=== PATIENT | female | born 1940 ===

== ENCOUNTER 2021-02-09 17:33 | Emergency (ER) | payer MEDICARE, SELFPAY ==
[2021-02-09 17:40] VITALS: BP 140/46; PULSE 76; RESP 28; TEMP 36.4; O2SAT 98
--- NOTE | 2021-02-09 18:10 | ED.GENADULT ---
HPI - General Adult General Chief complaint: Epistaxis Stated complaint: nose bleed wont stop Time Seen by Provider: 02/09/21 18:11 Source: patient and family History of Present Illness HPI narrative: Patient comes in for evaluation of nosebleed on and off today. Patient states she is on Eliquis and has had small nosebleeds frequently on and off and has been evaluated by her PCP and started on his Astelin nasal spray which she has not used at this time patient states she had nosebleeds on and off since 1230 today. Patient denies any elevated blood pressure no shortness of breath no pain. Patient presents with a tissue in her left nare and no bleeding present at this time. Related Data Home Medications Medication Instructions Recorded Confirmed apixaban [Eliquis] mg 02/09/21 azelastine INTRANASAL 02/09/21 carvedilol 02/09/21 ferrous sulfate [FeroSul] mg 02/09/21 hydrocodone-acetaminophen tablet 02/09/21 levothyroxine 02/09/21 metformin mg PO 02/09/21 pantoprazole PO 02/09/21 potassium chloride meq PO 02/09/21 simvastatin mg 02/09/21 spironolactone 02/09/21 venlafaxine mg 02/09/21 zolpidem 02/09/21 Allergies Allergy/AdvReac Type Severity Reaction Status Date / Time Sulfa (Sulfonamide Allergy Unknown Rash Verified 09/28/18 18:33 Antibiotics) PROPOXYPHENE HCL Allergy Unknown Uncoded 09/28/18 18:33 Review of Systems Review of Systems: CONSTITUTIONAL: Denies fever, chills, or sweats. EYES: Denies visual changes, redness, or discharge. ENT: Denies rhinorrhea, congestion, sore throat, or otalgia. CARDIOVASCULAR: Denies chest pain, palpitations, or edema. RESPIRATORY: Denies cough or dyspnea. GASTROINTESTINAL: Denies abdominal pain, nausea, vomiting, or diarrhea. GENITOURINARY: Denies dysuria or hematuria. SKIN: Denies rash or itching. MUSCULOSKELETAL: Denies back pain, joint pain, or myalgia. NEUROLOGIC: Denies headache, numbness, or weakness. PSYCHIATRIC: Denies anxiety or depression. [facility] Comments At time of signature, agree with nursing past medical, surgical, social and family history. There is no relevant family history pertinent to the presenting complaint Exam Narrative: GENERAL: Well-appearing, well-nourished, and in no acute distress. HEAD: Normocephalic, atraumatic. EYES: PERRLA and EOMI. ENT: Nares clear, no rhinorrhea or epistaxis. Mucous membranes moist. NECK: Supple. CHEST: Clear to auscultation. No respiratory distress. HEART: Regular rate and rhythm. No murmur heard. Normal peripheral pulses. ABDOMEN: Soft, nontender, nondistended, normal active bowel sounds. EXTREMITIES: Normal range of motion. No edema. SKIN: Warm, dry, no rash. NEURO: No focal deficits. Alert and oriented x3. Adam Coma Scale Eye Opening: Spontaneous 4 [place] Coma Scale Motor: Obeys Commands 6 Adam Coma Scale Verbal: Oriented 5 Hilde[place]an Coma Scale Total 15 HENMT: General nose exam: Normal nares present and Epistaxis present (No epistasis at this time. Tissue removed from left nare and no bleeding) on the left (Left nare patent no visible bleeding) Course Vital Signs Vital signs: Vital Signs Temperature 36.4 C 02/09/21 17:40 Pulse Rate 76 02/09/21 17:40 Respiratory Rate 28 H 02/09/21 17:40 Blood Pressure 140/46 L 02/09/21 17:40 Pulse Oximetry 98 02/09/21 17:40 Temperature 36.4 C 02/09/21 17:40 Pulse Rate 76 02/09/21 17:40 Respiratory Rate 28 H 02/09/21 17:40 Blood Pressure 140/46 L 02/09/21 17:40 Pulse Oximetry 98 02/09/21 17:40 Addressed elevated BP today. Today's blood pressure higher than recommended range. 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 Currently patient denies headache, dizziness, vision changes, CP or shortness of breath. Medical Decision Making Vital Signs Vital Signs: Vital Signs Temperature 36.4 C 02/09/21 17:40 Pulse Rate 76 02/09/21 17:40 Respiratory Rate 28
== END 2021-02-09 18:30 | disposition home or self-care (01) ==
PROVIDERS: Emergency Provider Nurse Practitioner Family
DX: R04.0 Epistaxis (principal); I48.91 Unspecified atrial fibrillation; I11.0 Hypertensive heart disease with heart failure; I50.9 Heart failure, unspecified; Z95.0 Presence of cardiac pacemaker; Z96.653 Presence of artificial knee joint, bilateral; H26.9 Unspecified cataract
CPT/HCPCS: 99211; G0463

== ENCOUNTER 2022-06-20 10:13 | Emergency (ER) | payer MEDICARE, SELFPAY ==
--- NOTE | 2022-06-20 10:18 | ED.URI ---
HPI - URI/Sore Throat General Chief Complaint: Epistaxis Stated Complaint: Bloody Nose Time Seen by Provider: 06/20/22 10:18 Source: patient, family and RN notes reviewed History of Present Illness HPI Narrative: patient is an 82-year-old female who presents to the Urgent Care with complaints of a nosebleed since 8:20 a.m.. Patient states that she does have nose bleeds occasionally with the last 1 being 3 weeks ago. Patient states she has had a sore in her nose and continues to blow her nose which causes the nose bleeds. Patient is on Eliquis. Denies any trauma or injury to the nose. No other acute complaints. No acute distress noted. Patient aware of the plan of care. Some parts of this dictation were generated by voice recognition software and may contain typographical and/or grammatical inaccuracies. Related Data Home Medications Medication Instructions Recorded Confirmed apixaban 5 mg tablet (Eliquis) 5 mg PO DAILY 02/09/21 02/09/21 azelastine 137 mcg (0.1 %) nasal See Rx Instructions .Route .COMPLEX 02/09/21 02/09/21 spray aerosol carvedilol 3.125 mg tablet 3.125 mg PO BID 02/09/21 02/09/21 ferrous sulfate 325 mg (65 mg 325 mg PO DAILY 02/09/21 02/09/21 iron) tablet (FeroSul) hydrocodone 10 mg-acetaminophen 1 tablet PO QID PRN Pain 02/09/21 02/09/21 325 mg tablet levothyroxine 100 mcg tablet 100 mcg PO DAILY 02/09/21 02/09/21 metformin 500 mg tablet,extended 500 mg PO BID 02/09/21 02/09/21 release 24 hr pantoprazole 40 mg tablet,delayed 40 mg PO DAILY 02/09/21 02/09/21 release potassium chloride 20 mEq 20 meq PO DAILY 02/09/21 02/09/21 tablet,extended release(part/cryst) simvastatin 10 mg tablet 10 mg PO DAILY 02/09/21 02/09/21 spironolactone 25 mg tablet 25 mg PO DAILY 02/09/21 02/09/21 venlafaxine 75 mg tablet 75 mg PO DAILY 02/09/21 02/09/21 zolpidem 10 mg tablet 10 mg PO HS PRN Sleep 02/09/21 02/09/21 Allergies Allergy/AdvReac Type Severity Reaction Status Date / Time Sulfa (Sulfonamide Allergy Unknown Rash Verified 09/28/18 18:33 Antibiotics) PROPOXYPHENE HCL Allergy Unknown Uncoded 09/28/18 18:33 Review of Systems Review of Systems: CONSTITUTIONAL: Denies fever, chills, or sweats. EYES: Denies visual changes, redness, or discharge. ENT: Denies rhinorrhea, congestion, sore throat, or otalgia. Reports of nose bleed CARDIOVASCULAR: Denies chest pain, palpitations, or edema. RESPIRATORY: Denies cough or dyspnea. GASTROINTESTINAL: Denies abdominal pain, nausea, vomiting, or diarrhea. GENITOURINARY: Denies dysuria or hematuria. SKIN: Denies rash or itching. MUSCULOSKELETAL: Denies back pain, joint pain, or myalgia. NEUROLOGIC: Denies headache, numbness, or weakness. All other systems reviewed are negative, except as documented in HPI. [facility] Comments At the time of my signature, I reviewed and agree with the nursing past medical, surgical, social, and family history. There is no relevant family history pertinent to the patient complaint. Exam Narrative: GENERAL: This is a well-nourished, well-developed patient, in no apparent distress. HEAD: normocephalic, atraumatic. EYES: PERRL. Sclera clear/white. Vision is grossly intact. EARS: External ears normal NOSE: External nose normal. epistasis to the left Nare with superficial laceration to the septum THROAT: Mucous membranes moist NECK: Neck supple SKIN: warm, intact with no suspicious lesions or rash, good texture and turgor. NEURO: awake, alert, and oriented to person, place and time. There were no obvious focal neurologic abnormalities. EXTREMITIES: No clubbing, cyanosis, or edema. Course Course Level of Care: Express Care Visit Vital Signs Vital signs: Vital Signs Temperature 97.7 F 06/20/22 10:21 Pulse Rate 79 06/20/22 10:21 Respiratory Rate 20 06/20/22 10:21 Blood Pressure 118/70 06/20/22 10:21 Pulse Oximetry 97 06/20/22 10:21 Oxygen Delivery Room Air 06/20/22 10:21 Temperature 97.7 F
[2022-06-20 10:21] VITALS: BP 118/70; PULSE 79; RESP 20; TEMP 36.5; O2SAT 97
== END 2022-06-20 10:54 | disposition home or self-care (01) ==
PROVIDERS: Emergency Provider Nurse Practitioner Family; PCP Hospitalist
DX: R04.0 Epistaxis (principal)
CPT/HCPCS: 30901; 99213; G0463

== ENCOUNTER 2025-01-05 16:16 | Emergency (ER) | payer MEDICARE, SELFPAY ==
--- OUTSIDE RECORDS SUMMARY | 2025-01-05 16:18 | XMS_ITS | Clinical Summary ---
Author Organization [facility] Administrative Offices Address [address] [place] [address] Care Team Providers Care Internal Review And Audit Compliance Name Role Phone Adam Elena MD Primary Care Provider [phone] Allergies Active Allergy Reactions Criticality Noted Date Comments Propoxyphene Unknown 05/25/2009 Sulfa (Sulfonamide Antibiotics) Rash,Itching Low Medications POTASSIUM PO Take by mouth. 20mg Active hydrALAZINE (APRESOLINE) 10 mg Oral Tab Take 10 mg by mouth 4 times daily. Active venlafaxine SR 24 hour (EFFEXOR XR) 150 mg Oral Cp24 Take 150 mg by mouth daily. Active furosemide (LASIX) 40 mg Oral Tab Take 40 mg by mouth daily. Active quinapril (ACCUPRIL) 5 mg Oral Tab Take 5 mg by mouth daily. Active Hydrocodone-Acet aminophen 5-500 mg Oral Cap Take by mouth. Active metformin (GLUCOPHAGE XR) 500 mg Oral Tb24 Take 500 mg by mouth daily. Active ZOLPIDEM TARTRATE 5 MG PO TABS 2 times daily. Active CYANOCOBALAMIN, VITAMIN B-12, (VITAMIN B-12 ORAL) Take by mouth. Active LEVOTHYROXINE 100 mcg Oral tablet 07/05/2013 Active CALCIUM PHOSPHATE TRIB/VIT D3 (CITRACAL + D ORAL) Take by mouth. Active FERROUS SULFATE ORAL Take by mouth. Active apixaban (ELIQUIS) 5 mg tablet Take by mouth 2 times daily. Active Active Problems Patient Care Coordination No te Formatting of this note migh t be different from the original. 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 Adjuvant tamoxifen, and no adjuvant radiation. 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 Gender Identity Not on file Sexual Orientation Not on file Occupation Industry Job Start Date Job End Date Not on file Not on file Not on file Not on file Last Filed Vital Signs Vital Sign Reading Time Taken Comments Blood Pressure 135/69 09/16/2014 12:02 PM CDT Pulse 96 09/16/2014 12:02 PM CDT Temperature - - Respiratory Rate - - Oxygen Saturation - - Inhaled Oxygen Concentration - - Weight 106.1 kg (234 lb) 09/16/2014 12:02 PM CDT Height 152.4 cm (5') 09/16/2014 12:02 PM CDT Body Mass Index 45.7 09/16/2014 12:02 PM CDT Plan of Treatment Health Maintenance Due Date Last Done Comments DTAP/TDAP/TD VACCINES (1 - Tdap) 1961 PNEUMOCOCCAL VACCINE 50+ YEARS (1 of 1 - PCV) 01/16/19 92 ZOSTER VACCINE (1 of 2) 01/17/1992 OSTEOPOROSIS SCREENING 2007 RSV VACCINE (60+ or ) (1 - 1-dose 75+ series) 2017 INFLUENZA VACCINE (#1) 2025 Insurance MEDICARE PART A AND B [facility] Care Teams Internal Review And Audit Compliance Relationship Specialty Start Date End Date Adam Elena MD [address] [place] [address] [phone] PCP - General 05/26/09
--- OUTSIDE RECORDS SUMMARY | 2025-01-05 16:18 | XMS_ITS | Clinical Summary ---
Author Organization [facility] Address [address] [place] [address] Phone Care Team Providers Care Dowel Pointer Name Role Phone Ant Horn MD Unavailable [phone] Fernando Peterson MD Primary Care Provider [phone] Allergies Active Allergy Reactions Criticality Noted Date Comments Sulfa Antibiotics Rash High 03/25/2016 Medications carvedilol (COREG) 6.25 MG Tablet TAKE 1 TABLET BY MOUTH TWICE A DAY 6 6 Active levothyroxine (SYNTHROID) 100 MCG Tablet TAKE ONE TABLET BY MOUTH ONCE A DAY 3 6 Active metFORMIN (GLUCOPHAGE-XR) 500 MG TABLET SR 24 HR TAKE 2 TABLETS BY MOUTH IN THE MORNING, AND 1 TABLET BY MOUTH IN THE EVENING 3 6 Active quinapril (ACCUPRIL) 5 MG Tablet Take 5 mg by mouth daily. 3 6 Active venlafaxine (EFFEXOR-XR) 75 MG CAPSULE SR 24 HR TAKE ONE CAPSULE BY MOUTH EVERY DAY FOR MOOD. 3 6 Active zolpidem (AMBIEN) 10 MG Tablet TAKE 1 TABLET BY MOUTH AT BEDTIME NEEDED FOR INSOMNIA. 5 6 Active KLOR-CON M20 20 MEQ Tablet Controlled Release TAKE 1 TABLET BY MOUTH ONCE DAILY WITH FOOD 3 6 Active HYDROcodone-acet aminophen (NORCO) 10-325 MG Tablet TAKE 1 TABLET BY MOUTH 4 TIMES A DAY NEEDED FOR PAIN 0 6 Active ferrous sulfate 325 (65 FE) MG Tablet TAKE ONE TABLET BY MOUTH EVERY DAY FOR IRON 4 6 Active furosemide (LASIX) 40 MG Tablet Take 40 mg by mouth daily. 3 6 Active hydrALAZINE 10 MG Tablet TAKE 1 TABLET BY MOUTH TWICE A DAY WITH FOOD 3 6 Active apixaban (ELIQUIS) 5 MG Tablet Take 5 mg by mouth 2 times daily. Active spironolactone (ALDACTONE) 25 MG Tablet Take 25 mg by mouth daily. Active ondansetron (ZOFRAN-ODT) 4 MG TABLET DISPERSIBLE Take 1 Tab by mouth every 8 hours as needed for Nausea. 10 Tab 8 Active Additional Information Patient not taking.Reported on 10/28/2017 pantoprazole (PROTONIX) 40 MG Tablet Delayed Response Take 40 mg by mouth daily. Active metroNIDAZOLE (FLAGYL) 500 MG Tablet Take 500mg at 2pm, 3pm, and 10pm the day before surgery. 3 Tab 8 Active neomycin 500 MG Tablet Take 500mg at 2pm, 3pm, and 10pm the day before surgery. 3 Tab 8 Active polyethylene glycol (MIRALAX) Powder 255 Gram of miralax 255 g 8 Active Active Problems Problem Noted Date Diagnosed Date Gallstones, common bile duct 10/21/2017 Small bowel obstruction 10/18/2017 SIRS (systemic inflammatory response syndrome) 0 10/18/[address] of the abdomen 10/18/2017 Chronic systolic CHF (congestive heart failure) 10/18/2017 Atrial fibrillation 10/18/2017 CKD stage 3 due to type 2 diabetes mellitus 10/2017 POLINA (obstructive sleep apnea) 04/01/2016 Restless legs syndrome (RLS) 04/01/2016 Morbid obesity 04/01/2016 Essential (primary) hypertension 04/01/2016 Type 2 diabetes mellitus wit h stage 3 chronic kidney disease 04/01/2016 Immunizations Immunization Administration Dates Next Due Covid-19, Mrna, Lnp-s, PF, 1 00 mcg/0.5 mL Dose (Moderna) 08/19/2020,07/22/2020 Family History Medical History Relation Name Comments No Known Problems Maternal Grandfather No Known Problems Maternal Grandmother Heart Attack Mother No Known Problems Paternal Grandfather No Known Problems Paternal Grandmother Breast Cancer Sister Cancer Sister Relation Name Status Comments Father Maternal Grandfather Maternal Grandmother Mother (Age 42) Paternal Grandfather Paternal Grandmother Sister Social History Tobacco Use Types Packs/Day Years Used Date Smoking Tobacco: Never Smokeless Tobacco: Never Tobacco Cessation:Counseling Given: Yes Alcohol Use Standard Drinks/Week Comments Yes 0 (1 standard drink = 0.6 oz pur e alcohol) very occasionally Sexually Active Control Partners Comments Never Comments No Sex and Gender Information Value Date Recorded Sex Assigned at Not on file Legal Sex Female 7:06 PM CDT Gender Identity Not on file Sexual Orientation Not on file Last Filed Vital Signs Vital Sign Reading Time Taken Comments Blood Pressure 116/74 10/28/2017 1:55 PM CDT Pulse 92 10/28/2017 1:55 PM CDT Temperature 35.8 C (96.5 F) 10/28/2017 1:55 PM CDT Respiratory Rate 18 10/28/2017 1:55 PM CDT Oxygen Saturation 97% 10/28/2017 1:55 PM CDT Inhaled Oxygen Concentration - - Weight 107.1 kg (236 lb 3.2 oz) 10/28/2017 1:55 PM CDT Height 149.9 cm (4' 11) 10/28/2017 1:55 PM CDT Body Mass Index 47.71 10/28/2017 1:55 PM CDT Plan of Treatment Upcoming Encounters Date Type Department Care Team (Late st Contact Info) Description 02/23/2025 3:15 PM CDT Appointment [facility] [address] [place] [address] Fernando Peterson MD [address] [place] [address] Discharge Disposition: Discharged to home or Selfcare Health Maintenance Due Date Last Done Comments Diabetes: Eye Exam 1940 Diabetes: Foot Exam 1940 Hepatitis C Virus (HCV) Screening 1940 Zoster Immunization (1 of 2) 01/17/1992 Discussion re Stopping Mammograms 2017 Respiratory Syncytial Virus (RSV) Immunization (Adult) (1 - 1-dose 75+ series) 2017 Diabetes: Nephropathy Screening 10/21/2018 10/21/2017, 10/20/2017, 10/19/2017, Additional history exists DEXA Bone Density 04/20/2023 04/20/2021, 04/16/2019 SARS-COV-2 Immunization ( season) 2024 07/16/2021, 08/19/2020, 07/22/2020 Diabetes: Hemoglobin A1c 05/21/2024 024, 03/25/2022, 02/22/2020, Additional history exists Mammogram 08/06/2024 08/06/2023, 05/16, 04/20/2021, Additional history exists Influenza Immunization (#1) 02/14/202503/16, 03/16/2023, 03/27/2022, Additional history exists DTaP/Tdap/Td Immunization Discontinued 03/16/2018 TdaP Immunization Completed 03/16/2018 Pneumococcal Immunization (50+ years) Completed 03/16/2020, 03/18/2019, 02/21/2011 Pneumococcal Immunization Combined Discontinued 03/16/2020, 03/18/2019, 02/21/2011 Hepatitis B Immunization Aged Out No longer eligible based on patient's age to complete this topic Human Papillomavirus (HPV) Immunization Aged Out No longer eligible based on patient's age to complete this topic Meningococcal Immunization (ACWY) Aged Out No longer eligible based on patient's age to complete this topic Rotavirus Immunization Aged Out No lo nger eligible based on patient's age to complete this topic Procedures Procedure Name Priority Date/Time Associated Diagnosis Comments VIDA SCREENING BILATERAL DIGITAL W CAD W NADIRA Routine 08/06/2023 12:39 PM BISCUIT PACKER Encounter for screening mammogram for malignant neoplasm of breast CMP (COMPREHENSIVE METABOLIC PANEL) Routine 10/21/2017 5:44 AM CDT HEMOGLOBIN A1C W/ ESTIMATED GLUCOSE Routine 10/18/2017 11:57 AM CDT from Last 3 Months or Most Recently Relevant to Health Maintenance Results * VIDA SCREENING BILATERAL DIGITAL W CAD W NADIRA (08/06/2023 12:39 PM BISCUIT PACKER) Anatomical Region Laterality Modality breast Bilateral Mammography 08/06/2023 12:5 1 PM BISCUIT PACKER Narrative 08/07/2023 8:30 AM BISCUIT PACKER - VIDA SCREENING BILATERAL DIGITAL W CAD W NADIRA BILATERAL DIGITAL SCREENING MAMMOGRAM 3D/2D WITH CAD WITH MEDIOLATERAL OBLIQUE CRANIOCAUDAL: 08/06/2023 The study was acquired using digital technology and interpreted from soft copy. Current study was also evaluated with ICAD version 7.2. 2D digital mammographic views, as well as 3D digital tomosynthesis were performed in the CC and MLO projections. CLINICAL: Routine screening. Patient has no complaints. Exam performed in a wheelchair, limited range of motion. Pacemaker in left chest. Personal history of breast cancer found in the tissue removed during breast reduction in 1998. Sister with postmenopausal breast cancer. COMPARISONS: Comparison is made to exams dated: 04/20/2021, 05/31/2022, and 03/31/2020 [facility]. BREAST TISSUE:The tissue of both breasts is predominantly fatty. FINDINGS: A cardiac pacemaker is present on the left. There are benign calcifications in the left breast. No significant masses, calcifications, or other findings are seen in either breast. IMPRESSION: BI-RAD 2 BENIGN There is no mammographic evidence of malignancy. A 1 year screening mammogram is recommended. A letter will be sent to the patient with these results. The patient will be entered into a reminder system with a target due date of 1 year for her next screening exam. Electronically signed by: Son Abarca M.D. ll/:08/06/2023 16:28:48 Air Plant Engineer(s): RT Jun(R)(M), [facility] letter sent: Normal Exam Reading location: [facility] BI-RADS: 2 Benign Procedure Note Son Abarca MD - 08/07/2023 - VIDA SCREENING BILATERAL DIGITAL W CAD W NADIRA BILATERAL DIGITAL SCREENING MAMMOGRAM 3D/2D WITH CAD WITH MEDIOLATERAL OBLIQUE CRANIOCAUDAL: 08/06/2023 The study was acquired using digital technology and interpreted from soft copy. Current study was also evaluated with ICAD version 7.2. 2D digital mammographic views, as well as 3D digital tomosynthesis were performed in the CC and MLO projections. CLINICAL: Routine screening. Patient has no complaints. Exam performed in a wheelchair, limited range of motion. Pacemaker in left chest. Personal history of breast cancer found in the tissue removed during breast reduction in 1998. Sister with postmenopausal breast cancer. COMPARISONS: Comparison is made to exams dated: 04/20/2021, 05/31/2022, and 03/31/2020 [facility]. BREAST TISSUE:The tissue of both breasts is predominantly fatty. FINDINGS: A cardiac pacemaker is present on the left. There are benign calcifications in the left breast. No significant masses, calcifications, or other findings are seen in either breast. IMPRESSION: BI-RAD 2 BENIGN There is no mammographic evidence of malignancy. A 1 year screening mammogram is recommended. A letter will be sent to the patient with these results. The patient will be entered into a reminder system with a target due date of 1 year for her next screening exam. Electronically signed by: Son Abraca M.D. ll/:08/06/2023 16:28:48 Air Plant Engineer(s): RT Jun(R)(M), [facility] letter sent: Normal Exam Reading location: [facility] BI-RADS: 2 Benign us Fernando Peterson MD IM MAMMO ORDERABLES Final Resu lt * (ABNORMAL) Comprehensive Metabolic Panel (CMP) (10/21/2017 5:44 AM CDT) SODIUM 139 131 - 143 mmol/L 10/21/2017 7:[address] [facility] POTASSIUM 3.3(L) 3.5 - 5.1 mmol/L 10/21/2017 7:[address] [facility] CHLORIDE 97(L) 100 - 110 mmol/L 10/21/2017 7:[address] [facility] CO2, VENOUS 30 22 - 32 mmol/L 10/21/2017 7:[address] [facility] ANION GAP 15.3 8.0 - 20.0 mmol/L 10/21/2017 7:09 AM [facility] GLUCOSE 102 70 - 105 mg/dL 10/21/2017 7:09 AM [facility] BUN 21 10 - 31 mg/dL 10/21/2017 7:09 AM [facility] CREATININE, BLOOD 0.90 0.60 - 1.30 mg/dL 10/21/2017 7:09 AM [facility] BUN/CREATININE RATIO 23(H) 12 - 20 ratio 10/21/2017 7:09 AM [facility] TOTAL PROTEIN 6.7 6.0 - 8.3 g/dL 10/21/2017 7:09 AM [facility] ALBUMIN 3.5 3.5 - 5.2 g/dL 10/21/2017 7:09 AM [facility] A/G RATIO 1.1 1.0 - 2.0 10/21/2017 7:09 AM [facility] CALCIUM 9.2 8.9 - 10.3 mg/dL 10/21/2017 7:09 AM [facility] T BILI 1.5(H) 0.3 - 1.2 mg/dL 10/21/2017 7:09 AM [facility] SGOT (AST) 17 1 - 32 U/L 10/21/2017 7:09 AM [facility] SGPT (ALT) 16 1 - 33 U/L 10/21/2017 7:09 AM [facility] ALKALINE PHOSPHATASE 86 35 - 105 U/L 10/21/2017 7:09 AM [facility] GFR, EST. NONAFRICAN >60 >=60 10/21/2017 7:09 AM [facility] GFR, EST. >60 >=60 10/21/2017 7:09 AM [facility] Comment: Creatinine Clearance is the preferred criteria for selecting drug dose adjustments in renally impaired patients. The GFR is provided as additional pertinent clinical information. GFR is reported in mL/min/1.73 sq m. Blood specimen (specimen) Venipuncture / Unknown 10/21/2017 5:44 AM CDT 10/21/2017 6:19 AM CDT us Ericka Hopkins APRN, CNP CHEMISTRY ORDERABLE S Final Result Performing Organization Address City/[facility]/ZIP Co de Phone Number [facility] [place] [address] * Hemoglobin A1C w/ Estimated Glucose (10/18/2017 11:57 AM CDT) HGB-A1C 5.9 4.4 - 6.4 % 10/18/2017 12:40 PM CDT [facility] Est Average Glucose 122.6 mg/dL 10/18/2017 12:40 PM CDT [facility] Blood specimen (specimen) Venipuncture / Unknown 10/18/2017 11:57 AM CDT 10/18/2017 12:08 PM CDT Narrative [facility] - 10/18/2017 12:40 PM CDT HEMOGLOBIN A1C: DIABETIC PATIENTS: WELL-CONTROLLED: 6.2 - 7.0 INTERMEDIATE WELL-CONTROLLED: 7.0 - 9.0 POORLY-CONTROLLED: >9.0 us Ericka Hopkins APRN, CNP CHEMISTRY ORDERABLE S Final Result Performing Organization Address [facility] Co de Phone Number [facility] [place] [address] from Last 3 Months or Most Recently Relevant to Health Maintenance Additional Health Concerns Infection Onset Date Last Indicated MRSA 10/17/2017 10/17/2017 Insurance MEDICARE [facility] Advance Directives * Full Code (Latest Code Status on File) Date Activated Date Inactivated Comments 10/18/2017 11:00 AM 10/21/2017 1:44 PM CPR-Full Beulah tment: FULL ARREST: Attempt Resuscitation/CPR wit intubation and mechanical ventilation. PRE-ARREST: Use entire range of life support measures to stabilize the patient. Care Teams Dowel Pointer Relationship Specialty Start Date End Date Fernando Peterson MD [address] [place] [address] PCP - General Family Medicine 04/20/21 Ant Horn MD [address] [facility] [address] [place] [address] Forms Cardiovascular Disease - Cardiology 10/31/17
[2025-01-05 16:23] VITALS: BP 94/43; PULSE 88; RESP 22; TEMP 36.4; O2SAT 98
--- OUTSIDE RECORDS SUMMARY | 2025-01-05 16:25 | XMS_ITS ---
Author Organization [facility] C Address [address] [place] [address] Care Team Providers Care Welder Boilermaker Name Role Phone Fernando Germain MD Unavailable [phone] Marcial Payan MD Unavailable [phone] Fernando Peterson MD Primary Care Provider [phone] Jus Bush MD Unavailable Fernando Almodovar MD Unavailable [phone] Fabian Andino NP Unavailable [phone] Active Problems Problem Noted Date Diagnosed Date Diarrhea, unspecified type 03/07/2023 Encounter for screening colonoscopy 01/13/2023 Incontinence of feces with fecal urgency 022 Assessment & Plan (05/13/2022 4:24 PM TELEVISION HOST): Patient continues to have episodes of fecal incontinence, occurs with urgency and diarrhea; no known dietary triggers, symptoms started after cholecystectomy Encouraged patient continue liquid dietary changes, avoid dietary triggers, if persist, will evaluate need for starting antidiarrheals Dyslipidemia associated with type 2 diabetes darwin litus 01/08/2022 Assessment & Plan (11/25/2024 12:28 PM CDT): Stable, well controlled, lipids at goal continue rosuvastatin 20 mg daily Assessment & Plan (08/19/2024 5:08 PM TELEVISION HOST): Stable, well controlled; continue rosuvastatin 20 mg daily Anticoagulation management encounter 11/19/2021 Assessment & Plan (11/25/2022 12:26 PM CDT): The patient has a [id number] score of 5 (annualized risk of stroke 6.7%). I have therefore recommended continued anticoagulation for thromboprophylaxis. The patient will follow-up with me in 12 months for an office visit and twelve- lead ECG. Assessment & Plan (11/19/2021 10:36 AM CDT): The patient has a [id number] score of 5 (annualized risk of stroke 6.7%). I have therefore recommended continued anticoagulation for thromboprophylaxis. The patient will follow-up with me in 12 months for an office visit and twelve- lead ECG. Chronic systolic CHF (congestive heart failure) 05/23/2021 Assessment & Plan (11/25/2024 12:28 PM CDT): Stable, some swelling in right leg; continue spironolactone 50 mg daily, potassium 20 mg daily, furosemide 40 mg b.i.d. Assessment & Plan (08/19/2024 5:08 PM TELEVISION HOST): Stable, last echo demonstrated normal LVEF; continue with medications Assessment & Plan (12/02/2023 3:13 PM CDT): Stable, well controlled; no significant peripheral edema today; no PND or orthopnea Continue carvedilol 6.25 mg b.i.d., furosemide 40 mg b.i.d., Aldactone 25 mg daily, Entresto 49-51 mg b.i.d. Assessment & Plan (11/29/2022 12:23 PM CDT): Last LVEF was 45-50%; status post mitral valve repair Mild concentric left ventricular hypertrophy Continue carvedilol 3.125 mg b.i.d., Entresto 49-51 mg daily, spironolactone 25 mg daily, furosemide 40 mg b.i.d. as needed for peripheral edema GERD (gastroesophageal reflux disease) Anxiety 05/23/2021 Hyperbilirubinemia 05/23/2021 Abnormal urinalysis 05/23/2021 Acquired hypothyroidism 03/06/2021 Assessment & Plan (11/29/2022 12:25 PM CDT): Weight is stable, however patient reports low energy levels Last TSH at target, but over a year old; recheck TSH Continue levothyroxine 100 mcg daily Assessment & Plan (05/13/2022 4:23 PM TELEVISION HOST): Stable, TSH at target; continue levothyroxine 100 mcg daily Assessment & Plan (11/08/2021 4:06 PM CDT): Stable, TSH at target, in view levels are stable, the mild increase in weight Continue levothyroxine 100 mcg daily Assessment & Plan (08/14/2021 1:31 PM TELEVISION HOST): Stable, well controlled; continue levothyroxine 100 mcg daily Assessment & Plan (03/06/2021 4:04 PM CDT): Currently feels fatigue and has recent weight gain Will recheck TSH to ensure levothyroxine is at appropriate dose Age-related osteoporosis wit hout current pathological fracture 01/03/2021 Assessment & Plan (11/25/2024 12:28 PM CDT): Stable, no falls or fractures; patient is scheduled for Prolia injection six- month Assessment & Plan (08/19/2024 5:08 PM TELEVISION HOST): Stable, no falls or fractures; would benefit from Prolia Will get DEXA scan and refer to infusion center for Prolia Assessment & Plan (12/02/2023 3:12 PM CDT): Stable, well controlled, no falls or fractures Continue Prolia 60 mg every 6 months Assessment & Plan (11/29/2022 12:25 PM CDT): Stable, continue Prolia injections every 6 months Assessment & Plan (05/13/2022 4:23 PM TELEVISION HOST): Stable, no falls or fractures Will order for Prolia; patient would prefer to avoid additional oral medications given significant pill burden Assessment & Plan (01/03/2021 4:03 PM CDT): Previously been on Fosamax, will evaluate based on DEXA scan and determine if patient needs to restart therapy Encouraged patient to continue calcium a 1000 mg daily, vitamin-D [id number] units daily Major depressive disorder, recurrent episode, mi ld 10/29/2019 Assessment & Plan (11/25/2024 12:29 PM CDT): Not well controlled; patient has significant amounts of depression, as well as grief, after loss of 's; patient also was moved into assisted living, with stressors related to new living environment Encourage patient to engage with individual counseling possible Psychiatry; patient may also benefit from groups such as grief share Continue bupropion 50 mg daily, venlafaxine 75 mg daily, Ambien 10 mg nightly Assessment & Plan (01/21/2024 2:36 PM CDT): Stable, improving; patient engages with regular counseling; continues to have ups and Downs Continue venlafaxine 75 mg daily, 10 mg at night p.r.n. for insomnia Assessment & Plan (12/02/2023 3:14 PM CDT): Not well controlled, acutely worsened after passing of ; continues to have symptoms of loneliness and social isolation Continue Effexor 150 mg daily, Ambien 10 mg nightly for sleep Assessment & Plan (08/26/2023 3:00 PM CDT): Stable, currently controlled Continue Venlafaxine 150 mg daily Begins individual counseling in September with Rajni Assessment & Plan (06/03/2023 1:07 PM TELEVISION HOST): Not currently well controlled Continue Venlafaxine 150 mg daily Does not wish to increase dose at this time Introduced patient to TODD Urban for additional support Assessment & Plan (02/24/2023 4:35 PM CDT): Not well controlled; patient has been having worsening symptoms; getting night sweats and feeling continue risk stroke Patient reports symptoms occur almost every night with soaking sweats Reports has been talking to patient is N/C has multiple moods due to dementia Patient reports symptoms are improving with Effexor Will continue Effexor 150 mg daily; Effexor may be causing night sweats Assessment & Plan (11/29/2022 12:26 PM CDT): Not well controlled, continues to have depression feeling down; depression most related to chronic pain, limiting patient's ability and activities Continue venlafaxine 150 mg daily Assessment & Plan (05/13/2022 4:25 PM TELEVISION HOST): Stable, continues to have ups and Downs; reports sometimes she has some limitations to activity due to depression Will continue venlafaxine 75 mg daily Assessment & Plan (11/08/2021 4:06 PM CDT): Stable, mood is generally well controlled, but continues to have issues of benzo Continue Effexor 75 mg daily Assessment & Plan (08/14/2021 1:31 PM TELEVISION HOST): Not well controlled; patient reports she has been feeling down since returning to the hospital; difficulty with getting out of bed doing what she wants to do Six due to back pain has difficulty with cooking and limited activities At this point feels good on current dose of medication Continue venlafaxine 75 mg daily Assessment & Plan (03/06/2021 4:03 PM CDT): Mild worsening of mood due to prolonged back pain worsening back pain Continue with venlafaxine 75 mg daily Status post mitral valve replacement 06/23/2019 Nonrheumatic mitral valve regurgitation 05/10/20 19 Anticoagulant long-term use 05/10/2019 Lumbar post-laminectomy syndrome 05/10/2019 Assessment & Plan (02/24/2023 4:36 PM CDT): Biggest limitation for patient's; continues to have difficulty with walking; using motorized scooter when move going long distances Takes long time for patient to cook foods Follows with pain management, had SI joint injections; on hydrocodone 10 mg q.8 hours p.r.n. Will continue to monitor Degenerative lumbar spinal stenosis 05/10/2019 DDD (degenerative disc disease), lumbar 05/10/20 19 Assessment & Plan (11/25/2024 12:28 PM CDT): Not well controlled, continues to have significant pain with limits her activity, as well as causes patient to feel isolated Patient uses walker or scooter for ambulation Continues to follow with pain management Continue hydrocodone for pain management Lumbar radiculopathy 05/10/2019 Assessment & Plan (11/29/2022 12:27 PM CDT): Worsening symptoms, impacting legs, patient also reports generalized body pain Not a candidate for revision surgery; continues to follow with pain management; surgical hardware makes it difficult to get nerve blocks Takes extended duration to complete laundry, difficulty with walking Continue with recommendations per pain management Chronic bilateral low back pain without sciatica 05/10/2019 Assessment & Plan (01/21/2024 2:37 PM CDT): Not well controlled; continues to have significant low back pain; significantly limits patient's ability to perform activities such as food preparation; will continue to monitor Assessment & Plan (12/02/2023 3:12 PM CDT): Continues to have low back pain, with aching and pain in legs and arms; feels weak Continue hydrocodone 10 mg t.i.d. p.r.n. for severe pain; Effexor 150 mg daily Assessment & Plan (03/06/2021 4:03 PM CDT): Not well controlled, has had multiple surgeries, physical therapy as well as other pain interventions Patient follows with pain management for treatment, currently on hydrocodone 10 q.8 hours Assessment & Plan (12/04/2020 4:18 PM CDT): Stable, not well controlled Patient has stimulator in place which is no longer provided relief for pain Patient using [place] 10, t.i.d. for pain relief Patient has limited ability to form task for extended duration due to back pain that worsens with standing for too long Patient to can continue with pain management in order to evaluate other therapies are adjustment of stimulator device to help control chronic pain Diverticula of colon 04/19/2019 Overview (04/19/2019): Added automatically from request for surgery [id number] Persistent atrial fibrillation 11/17/2018 Assessment & Plan (11/25/2024 12:27 PM CDT): Stable, well controlled, regular rate and rhythm; paced Continue Eliquis 5 mg b.i.d., carvedilol 6.25 mg b.i.d. Assessment & Plan (11/12/2024 4:29 PM CDT): Longstanding persistent atrial fibrillation, rendered asymptomatic by way of pacing / AV node ablation. I will not make any changes at this time. The patient's device was interrogated and found to be functioning appropriately. No substantial changes to programming were made. The patient is enrolled in the [facility], and we will continue to follow with remote monitoring when possible, and in-office device checks when necessary. The patient has a [id number] score of 5 (annualized risk of stroke 6.7%). I have therefore recommended continued anticoagulation thromboprophylaxis. The patient will follow-up with me in 12 months for an office visit and twelve- lead ECG. Assessment & Plan (08/19/2024 5:07 PM TELEVISION HOST): Stable, rate controlled continue Eliquis 5 mg b.i.d. Assessment & Plan (01/21/2024 2:36 PM CDT): Stable, irregular rhythm today with appropriate rate Continue carvedilol 6.25 mg b.i.d., Eliquis 5 mg b.i.d. Assessment & Plan (12/14/2023 1:14 PM CDT): Longstanding persistent atrial fibrillation, rendered asymptomatic by way of pacing / AV node ablation. I will not make any changes at this time. The patient's device was interrogated and found to be functioning appropriately. No substantial changes to programming were made. The patient is enrolled in the [facility], and we will continue to follow with remote monitoring when possible, and in-office device checks when necessary. The patient has a [id number] score of 5 (annualized risk of stroke 6.7%). Her appendage is absent surgically, however I have recommended continued apixaban if possible. Assessment & Plan (12/02/2023 3:13 PM CDT): Stable, well controlled, pacemaker in place; continue Eliquis 5 mg b.i.d., carvedilol 6.25 mg b.i.d. Assessment & Plan (06/05/2023 5:31 PM TELEVISION HOST): Longstanding persistent atrial fibrillation, rendered asymptomatic by way of biventricular pacing defibrillator/AV junction ablation. A strategy of rate control and anticoagulation remains appropriate. I will not make any changes at this time. The patient has a [id number] score of 5 (annualized risk of stroke 6.7%). I have therefore recommended continued anticoagulation for thromboprophylaxis. The patient will follow-up with me in 6 months for an office visit and twelve- lead ECG. Assessment & Plan (11/29/2022 12:22 PM CDT): Rate controlled today; no major side effects from medications Continue carvedilol 3.125 mg daily, apixaban 5 mg b.i.d. Assessment & Plan (11/25/2022 12:25 PM CDT): Persistent atrial fibrillation, treated with AV node ablation and biventricular pacing. Assessment & Plan (05/13/2022 4:20 PM TELEVISION HOST): Continues to be in irregular rate and rhythm; continue carvedilol 3.125 mg b.i.d., apixaban 5 mg daily Patient reports generalized fatigue, pacemaker battery is running low; encouraged follow-up with cardiology to scheduled for replacement Assessment & Plan (11/19/2021 10:34 AM CDT): Chronic persistent atrial fibrillation, rendered minimally symptomatic by way of biventricular pacing and AV junction ablation. Assessment & Plan (11/08/2021 4:03 PM CDT): Stable, well controlled; patient scheduled to follow with Cardiology for management of defibrillator Continue Eliquis 5 mg b.i.d., carvedilol 3.125 mg b.i.d Assessment & Plan (08/14/2021 1:28 PM TELEVISION HOST): Stable rate controlled; patient reports no significant bruising bleeding in current anticoagulation Continue carvedilol 3.125 mg b.i.d., Eliquis 5 mg b.i.d. Assessment & Plan (03/06/2021 4:02 PM CDT): Stable, well controlled Tolerating apixaban 5 mg b.i.d. well; rate controlled on Coreg 3.125 b.i.d.Continue interest to, spironolactone 25 mg daily Assessment & Plan (01/03/2021 11:25 AM CDT): Stable, rate controlled with Coreg, continue with Eliquis 5 mg b.i.d. and ASA 81 mg Assessment & Plan (11/13/2020 3:02 PM CDT): Chronic persistent atrial fibrillation, status post biventricular pacing ICD/AV junction ablation. The patient's device was interrogated and found to be functioning appropriately. No substantial changes to programming were made. The patient is enrolled in the [facility], and we will continue to follow with remote monitoring when possible, and in-office device checks when necessary. Assessment & Plan (11/16/2019 12:25 PM CDT): The patient is doing well with regards to her atrial arrhythmia. She is status post placement of a biventricular pacing ICD and AV junction ablation, which has rendered her minimally symptomatic. The patient's device was interrogated and found to be functioning appropriately. No substantial changes to programming were made. The patient is enrolled in the [facility], and we will continue to follow with remote monitoring when possible, and in-office device checks when necessary. Assessment & Plan (11/17/2018 4:29 PM CDT): Patient has chronic persistent atrial fibrillation. She is doing well status post biventricular pacing ICD/AV junction ablation. The patient's device was interrogated and found to be functioning appropriately. No substantial changes to programming were made. The patient is enrolled in the [facility], and we will continue to follow with remote monitoring when possible, and in-office device checks when necessary. Arthritis 11/12/2018 Ventral hernia without obstruction or gangrene 0 12/05/2017 Overview (12/05/2017): Added automatically from request for surgery [id number] CHB (complete heart block) 11/18/2017 Assessment & Plan (11/25/2024 12:26 PM CDT): Stable, pacemaker in place; AV node ablation Continue to monitor Assessment & Plan (12/02/2023 3:12 PM CDT): Stable, well controlled; pacemaker in place; VT (ventricular tachycardia) 11/18/2017 Assessment & Plan (11/25/2024 12:26 PM CDT): Stable, no major issues at this time Continue to monitor and follow closely with cardiology and electrophysiology Continue carvedilol 6.25 mg b.i.d., Eliquis 5 mg b.i.d. Assessment & Plan (12/14/2023 1:14 PM CDT): Appropriate shocks for VT/VF in the past, related to GI distress. None recurrent. Assessment & Plan (06/05/2023 5:30 PM TELEVISION HOST): Recent shocks for ventricular tachycardia/fibrillation. This occurred during a period of GI distress, and the patient has done well since. We have decided not to change her medications at this time, and will continue to follow. The patient's device was interrogated and found to be functioning appropriately. No substantial changes to programming were made. The patient is enrolled in the [facility], and we will continue to follow with remote monitoring when possible, and in-office device checks when necessary. Assessment & Plan (11/25/2022 12:25 PM CDT): Ventricular tachycardia, treated without shocks. For now, we will continue current medications. Antiarrhythmic drug therapy can be considered if her VT burden increases or if she experiences shocks. Assessment & Plan (11/19/2021 10:35 AM CDT): Ventricular tachycardia, very infrequent, recurrent, treated by ATP. At this point, we will continue current medications. Antiarrhythmic drug therapy can be considered if she experiences shocks or if her VT burden increases. 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 Her most recent interrogation has not demonstrated recurrent VT. For now, we will continue on current medications. Assessment & Plan (11/16/2019 12:27 PM CDT): She has received ATP for monomorphic ventricular tachycardia, but no shocks. Her overall PVC percentage appears to be decreased since her valve surgery. At this point, we will continue with no changes to therapy. She will remain on carvedilol. Assessment & Plan (11/17/2018 4:30 PM CDT): She has not had recurrence sustained monomorphic ventricular tachycardia. She continues to have evidence of PVCs, though these have been rendered asymptomatic with pacing. She is not on antiarrhythmic drug therapy. Assessment & Plan (11/18/2017 5:05 PM CDT): Her device has not shocked her. Each episode has been successfully treated with ATP. At this point, we will continue without antiarrhythmic drug therapy. Gallstones, common bile duct 10/21/2017 CKD stage 3 due to type 2 diabetes mellitus 10/2017 Assessment & Plan (11/25/2024 12:27 PM CDT): Stable, generally stable with few episodes of ups and Downs; continue to avoid nephrotoxic medications, appropriate blood pressure and blood sugar Assessment & Plan (08/19/2024 5:07 PM TELEVISION HOST): Stable, well controlled; no major changes to EGFR Will continue to monitor regularly Assessment & Plan (01/21/2024 2:35 PM CDT): Stable, generally well controlled; EGFR is staying stable around 30; some excursions up and down Continue with appropriate blood sugar and blood pressure control Assessment & Plan (12/02/2023 3:13 PM CDT): Stable, EGFR continues to go up and down; remaining stable in IIIb range Continue to monitor, encourage appropriate control of blood sugar and blood pressure; limit nephrotoxic medications ICD (implantable cardioverter-defibrillator) in place 12/25/2016 Overview (12/25/2016): [employer] In[employer]a STRAIGHTEDGE MAN-D implanted on 02/23/14 for NICM/CHF/CHB-S/P AVN ablation. [facility], [facility]. Assessment & Plan (11/12/2024 4:28 PM CDT): Nonischemic cardiomyopathy, complete heart block. She is status post STRAIGHTEDGE MAN-D. The patient's device was interrogated and found to be functioning appropriately. No substantial changes to programming were made. The patient is enrolled in the [facility], and we will continue to follow with remote monitoring when possible, and in-office device checks when necessary. Assessment & Plan (12/14/2023 1:15 PM CDT): The patient's device was interrogated and found to be functioning appropriately. No substantial changes to programming were made. The patient is enrolled in the [facility], and we will continue to follow with remote monitoring when possible, and in-office device checks when necessary. Assessment & Plan (11/25/2022 12:25 PM CDT): The patient's device was interrogated and found to be functioning appropriately. No substantial changes to programming were made. The patient is enrolled in the [facility], and we will continue to follow with remote monitoring when possible, and in-office device checks when necessary. Assessment & Plan (11/19/2021 10:34 AM CDT): The patient's device was interrogated and found to be functioning appropriately. No substantial changes to programming were made. The patient is enrolled in the [facility], and we will continue to follow with remote monitoring when possible, and in-office device checks when necessary. Her device is expected to reach its elective replacement indicator within the year. We will schedule pulse generator change/device revision when appropriate. POLINA (obstructive sleep apnea) 04/01/2016 Assessment & Plan (11/29/2022 12:26 PM CDT): Using CPAP nightly; continues to feel tired all the time Requires Ambien nightly for sleep Assessment & Plan (12/04/2020 4:18 PM CDT): Stable, well controlled Patient continue using CPAP, reports no improvement in energy or decrease in daytime fatigue Restless legs syndrome (RLS) 04/01/2016 Assessment & Plan (08/14/2021 1:32 PM TELEVISION HOST): Etiology, given recent bout of anemia from hospital; will check ferritin level; improvement will discuss medications such as gabapentin or Requip Type 2 diabetes mellitus wit h stage 3 chronic kidney disease 04/01/2016 Assessment & Plan (11/25/2024 12:27 PM CDT): Last A1c at goal; encourage low carbohydrate diet Assessment & Plan (08/19/2024 5:07 PM TELEVISION HOST): Stable, well controlled, A1c at goal Encourage low carbohydrate diet No current medications needed Assessment & Plan (05/27/2024 4:47 PM TELEVISION HOST): Stable, well controlled, A1c at goal; Continue low-carbohydrate diet Assessment & Plan (01/21/2024 2:35 PM CDT): Stable, well controlled, last A1c at goal; no episodes hypoglycemia; no medication at this Assessment & Plan (12/02/2023 3:11 PM CDT): Stable, well controlled, A1c at goal 6.0 Will continue to monitor, encourage low-carbohydrate diet Assessment & Plan (02/24/2023 4:18 PM CDT): Last A1c at goal. 5.8, eGFR stable at 46 A1c goals; start semaglutide 0.25 mg weekly Assessment & Plan (11/29/2022 12:24 PM CDT): Stable, well controlled; last A1c was 5.8 Continue metformin 500 mg daily Assessment & Plan (05/13/2022 4:23 PM TELEVISION HOST): Stable, GFR is stable, though fluctuates Continue follow with Nephrology and monitor closely Continue to maintain appropriate blood sugar and blood pressure control and avoid nephrotoxic medications Continue metformin 500 mg 500 mg daily with breakfast semi: Jardiance 10 mg daily Assessment & Plan (11/08/2021 4:05 PM CDT): Stable, well controlled, A1c at target Continue metformin 500 mg daily, Jardiance 10 mg daily Assessment & Plan (08/14/2021 1:30 PM TELEVISION HOST): Stable, not well controlled; has not been regularly checking blood sugars at home Patient has been working on weight loss and cutting back on portions Continue metformin 500 mg daily; check A1c Assessment & Plan (03/06/2021 4:03 PM CDT): Stable, well controlled; last A1c is 5.6 Today will discontinue metformin, start Rybelsus to help with weight loss Assessment & Plan (01/03/2021 4:02 PM CDT): Stable, well controlled, will decrease metformin to 5000 mg b.i.d. Hypertension associated with diabetes 04/01/2016 Assessment & Plan (11/25/2024 12:27 PM CDT): Stable, well controlled, blood pressure at goal continue carvedilol 6.25 mg b.i.d., Entresto, spironolactone 50 mg daily Assessment & Plan (08/19/2024 5:07 PM TELEVISION HOST): Stable, well controlled, blood pressure at goal; no chest pain pressure orthostatics Continue spironolactone 25 mg daily, Entresto 1 tablet b.i.d., carvedilol 6.25 mg b.i.d. Assessment & Plan (01/21/2024 2:36 PM CDT): Stable, well controlled, blood pressure at goal; patient had episodes of hypotension during recent procedure; now blood pressure has recovered to normal range Continue carvedilol 6.25 mg b.i.d., furosemide 40 mg b.i.d., Entresto 49-51 mg b.i.d., spironolactone 25 mg daily Assessment & Plan (02/24/2023 4:18 PM CDT): Stable, well controlled; blood pressure at goal Continue carvedilol 3.125 mg b.i.d., Entresto 49-51 mg b.i.d., spironolactone 25 mg daily Assessment & Plan (05/13/2022 4:21 PM TELEVISION HOST): Stable, well controlled; BP at target, no chest pain, occasional headaches, occasional orthostatics Continue blood pressure medications per heart failure Ventricular premature beats 06/10/2014 Overview (09/20/2016): PVCs Class 3 severe obesity due t o excess calories with serious comorbidity and body mass index (BMI) of 40.0 to 44.9 in adult 10/07/2011 Assessment & Plan (11/25/2024 12:26 PM CDT): Stable, no major changes Encouraged continued work on weight management through watching portion sizes, as well as physical activity as tolerated Assessment & Plan (08/19/2024 5:06 PM TELEVISION HOST): Stable, no major changes to weight; patient reports eating primarily preprepared meals given difficulty with cooking Would recommend focusing on healthy options, patient moving to assisted living which will provide healthier and brought her meal options Assessment & Plan (01/21/2024 2:35 PM CDT): Stable, improving; patient continues to lose weight; has been eating more prepared meals, which allows patient to focus on portion control Encouraged continued dietary changes limiting portion sizes and high-calorie foods Patient unable to engage in significant physical activity due to chronic low back pain Assessment & Plan (12/02/2023 3:12 PM CDT): Stable, well controlled; no significant change in weight Encourage low-carbohydrate, low-calorie diet; moderate activity as tolerated Assessment & Plan (02/24/2023 4:17 PM CDT): Stable, improving; patient reports some weight loss; but mostly due to suppressed appetite due to increased anxiety and stressors Will work on improving overall mood, but encouraged patient continue with portion control and smaller diet Ulises intake Continue to monitor Continue Wegovy Assessment & Plan (11/29/2022 12:24 PM CDT): Not well controlled, continues to have elevated weight; weight is stable from prior Encouraged continued decreasing caloric intake through portion control; regular physical activity as tolerated Assessment & Plan (05/13/2022 4:22 PM TELEVISION HOST): Weight is generally stable, patient reports low back pain limited ability to exercise; encouraged continued dietary changes to reduce caloric intake, encourage exercises as tolerated Assessment & Plan (11/08/2021 4:06 PM CDT): Not well controlled, mild increased weight Patient has difficulty with exercise due to chronic body pains as well as heart failure Encouraged continued work on dietary changes including portion control in order to help reduce overall caloric intake Assessment & Plan (08/14/2021 1:30 PM TELEVISION HOST): Level, improving; patient has been working on weight loss A cutting back on portions and not eating snacks between meals Patient can begin water therapy in order to help with low back pain Assessment & Plan (03/06/2021 4:02 PM CDT): Not well controlled, patient has been working on portion control, decreasing size of meals as well as trying to increase duration of walking Today will transition from metformin to semaglutide in order to help with weight loss Assessment & Plan (01/03/2021 4:02 PM CDT): Not well controlled, is unable to perform exercises due to significant low back pain Currently has not made any changes but would like to start changes in Patient will start with dietary changes, encouraged patient to also evaluate other options such as water therapy for exercise options Hyperkalemia Current Treatment and Therapy Plans No current plan information found. Other Current Plans denosumab (PROLIA) Injection* Plan Start Date:12/07/2024 Plan Provider:Fernando Peterson MD Linked Problems Age-related osteoporosis wit hout current pathological fracture Treatment Medications No medications scheduled. Past Treatment and Therapy Plans Lifetime Dose Tracking * Chemical Lifetime Dose Automatic Entry Manual Entr y Fluoro Time 9.785 minutes 9.785 minutes 0 minutes Air kerma at the reference point (Ka,r) 833.94 mGy 2 10.96 mGy 622.98 mGy Resolved Problems Problem Noted Date Diagnosed Date Resolved Date Acute cystitis without hematuria 05/30/2021 05/30/2021 Acute cholecystitis 05/23/2021 11/09/19 22 Assessment & Plan (06/12/2021 9:29 AM TELEVISION HOST): Remaining jayden have been removed as well as with her ANISA drain. Continue diet as tolerates. Continue to avoid heavy lifting for another 4 weeks. We will see her back in 2 weeks to reassess. She will call us sooner if anything changes. 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 Adjuvant tamoxifen, and no adjuvant radiation. 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 No changes to management today. Assessment & Plan (05/13/2022 4:21 PM TELEVISION HOST): Stable, has mild swelling in bilateral legs, but no episodes of orthopnea Has been having some increasing fatigue Continue carvedilol 3.125 mg b.i.d., Jardiance 10 mg daily, furosemide 40 mg daily, Entresto 49-51 mg daily, simvastatin 10 mg daily, spironolactone 25 mg daily Assessment & Plan (11/19/2021 10:36 AM CDT): Stable and euvolemic. She continues to follow with Cardiology. I have not changed any of her medications. Assessment & Plan (11/08/2021 4:05 PM CDT): Stable, generally well controlled; with no peripheral edema orthopnea; patient gets out of breath at times, however may be due to other medical conditions Continue to monitor, continue to follow with Cardiology Continue carvedilol 3.125 mg, furosemide 40 mg daily, spironolactone 25 mg daily, Entresto 49-51 mg 2 tablets daily Assessment & Plan (03/14/2018 11:49 AM CDT): By her history, cardiomyopathy has been stable. It is a nonischemic cardiomyopathy. She has a normally functioning biventricular ICD, and is status post AV node ablation for persistent atrial fibrillation, and is also status post a PVC ablation. Will continue her usual cardiac medications. Other abnormalities of breathing 09/27/2010 11/20/2023 Pulmonary edema cardiac cause 11/20/2023 Right upper quadrant abdominal abscess 12/02/2023 Assessment & Plan (06/26/2021 9:19 AM TELEVISION HOST): Continue diet as tolerates. We have asked the patient to wait another month to see if the diarrhea subsides. If not she will call us back and we will put her on cholestyramine. Continue light duty for another 4 weeks then may return to activities unrestricted. She will call back with any further questions or concerns.
--- OUTSIDE RECORDS SUMMARY | 2025-01-05 16:25 | XMS_ITS | Encounter Summary ---
Author Organization [facility] Healthcare Address [address] [place] [address] Care Team Providers Care Senior Lead Developer Name Role Phone Fernando Germain MD Unavailable [phone] Marcial Payan MD Unavailable [phone] Fernando Peterson MD Primary Care Provider [phone] Jus Bush MD Unavailable Fernando Almodovar MD Unavailable [phone] Fabian Andino NP Unavailable [phone] Encounter Details Date Type Department Care Team (Late st Contact Info) Description 05/29/2022 Telephone [facility] [address] [place] [id number] Renu Paige, RT Social History Tobacco Use Types Packs/Day Years Used Date Smoking Tobacco: Never Smokeless Tobacco: Never Alcohol Use Standard Drinks/Week Comments No 0 (1 standard drink = 0.6 oz pur e alcohol) AUDIT-C Answer Date Recorded Q1: How often do you have a drink containing alc ohol? Monthly or less 07/25/2021 Q2: How many drinks containi ng alcohol do you have on a typical day when you are drinking? 1 or 2 07/25/2021 Q3: How often do you have si x or more drinks on one occasion? Never 07/25/2021 PHQ-2 Answer Date Recorded PHQ-2 Total Score (If total score is 3 or more points, staff should administer the PHQ-9) 0 05/13/2022 Comments No Sex and Gender Information Value Date Recorded Sex Assigned at Not on file Legal Sex Female 5:37 PM VP PRODUCT Gender Identity Not on file Sexual Orientation Not on file documented as of this encounter Plan of Treatment Not on file documented as of this encounter Goals Goal Patient Goal Type Associated Problems Recent Progress Patient-Stated? Author BH-Pain Behavioral Health Worsening( 1:41 PM VP PRODUCT) No Radah Joy, CORWIN Note: Patient will establish a comfort-function goal and identify the pain level that will allow the patient to perform desired activities and achieve an acceptable quality of life. documented as of this encounter Visit Diagnoses Not on filedocumented in this encounter Care Teams Senior Lead Developer Relationship Specialty Start Date End Date Fernando Peterson MD [address] [place] [address] PCP - General Family Medicine 12/04/20 Fernando Germain MD Consulting Physician General Surgery 03/17/18 Marcial Payan MD [address] [place] [address] Surgeon Anesthesiology 03/03/20 Jus Bush MD [address] [place] [address] Consulting Physician General Surgery 06/01/21 Fernando Almodovar MD [address] [place] [address] Cut Out Press Operator Cardiology 01/08/22 Fabian Andino NP [address] [place] [address] Nurse Practitioner Urology 03/11/23 documented as of this encounter
--- OUTSIDE RECORDS SUMMARY | 2025-01-05 16:25 | XMS_ITS | Encounter Summary ---
Author Organization [facility] Address [address] [facility] [address] [place] [id number] Care Team Providers Care Nailing Machine Operator Name Role Phone Fernando Germain MD Unavailable [phone] Rowdy Burton MD Primary Care Provider [phone] Brody Ny MD Primary Care Provider [phone] Rowdy Burton MD Primary Care Provider [phone] Brody Ny MD Primary Care Provider [phone] Marcial Payan MD Unavailable [phone] Selvin Damico MD Primary Care Provider Fernando Peterson MD Primary Care Provider [phone] Jus Bush MD Unavailable Fernando Almodovar MD Unavailable [phone] Fabian Andino NP Unavailable [phone] Encounter Details Date Type Department Care Team (Late st Contact Info) Description 06/10/2016 Orders Only [facility] Provider, MD Judith [address] [place] [id number] Social History Tobacco Use Types Packs/Day Years Used Date Smoking Tobacco: Never Assessed Alcohol Use Standard Drinks/Week Comments No 0 (1 standard drink = 0.6 oz pur e alcohol) Comments Unknown Sex and Gender Information Value Date Recorded Sex Assigned at Not on file Legal Sex Female 5:37 PM MEDICAL BILLING SERVICE Gender Identity Not on file Sexual Orientation Not on file documented as of this encounter Plan of Treatment Not on file documented as of this encounter Procedures Procedure Name Priority Date/Time Associated Diagnosis Comments CARDIOLOGY REPORT 06/10/2016 documented in this encounter Results * CARDIOLOGY REPORT (06/10/2016) Anatomical Region Laterality Modality Other Narrative 06/10/2016 Ordered by an unspecified provider. 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 06/08/2013 06/08/2013 01/31/2021 5:00 AM C DT MRSA 05/25/2021 05/25/2021 11/21/2021 3:05 AM CDT COVID: Suspected 03/25/2022 03/25/2022 03/25/2022 5:40 PM CDT documented as of this encounter Care Teams Nailing Machine Operator Relationship Specialty Start Date End Date Rowdy Burton MD [address] [place] [address] PCP - General Family Medicine 11/12/18 05/05/19 Brody Ny MD [address] [place] [address] PCP - General Family Medicine 05/06/19 06/06/19 Rowdy Burton MD [address] [place] [address] PCP - General 06/07/19 10/11/19 Brody Ny MD [address] [place] [address] PCP - General Family Medicine 10/12/19 09/24/20 Selvin Damico MD [address] [place] [address] PCP - General 09/25/20 12/03/20 Fernando Peterson MD [address] [place] [address] PCP - General Family Medicine 12/04/20 Fernando Germain MD Consulting Physician General Surgery 03/17/18 Marcial Payan MD [address] [place] [address] Surgeon Anesthesiology 03/03/20 Jus Bush MD [address] [place] [address] Consulting Physician General Surgery 06/01/21 Fernando Almodovar MD [address] [place] [address] Rubber Mold Maker Cardiology 01/08/22 Fabian Andino NP [address] [place] [address] Nurse Practitioner Urology 03/11/23 documented as of this encounter
--- OUTSIDE RECORDS SUMMARY | 2025-01-05 16:25 | XMS_ITS | Clinical Summary ---
Author Organization [facility] C Address [address] [place] [address] Care Team Providers Care Construction Quality Control Manager Name Role Phone Fernando Germain MD Unavailable [phone] Marcial Payan MD Unavailable [phone] Fernando Peterson MD Primary Care Provider [phone] Jus Bush MD Unavailable Fernando Almodovar MD Unavailable [phone] Fabian Andino NP Unavailable [phone] Allergies Active Allergy Reactions Criticality Noted Date Comments Propoxyphene Delusions Medium Light headed, headache, not steady on her feet Cyclobenzaprine Mental status changes Low 05/23/2021 Empagliflozin Diarrhea Low 05/29/2023 Sulfa (Sulfonamide Antibiotics) Rash Medium Medications HYDROcodone-acet aminophen (NORCO) 10-325 mg per tabletIndication s:Pain Take 1 tablet by mouth every 8 (eight) hours as needed for pain 06/23/19 20 Active Narcan 4 mg/actuation spray,non-aeroso lIndications:Opi oid Toxicity 05/16/20 21 Active denosumab (PROLIA) 60 mg/mL syringeIndicatio ns:Age-related osteoporosis without current pathological fracture Inject 60 mg under the skin once every six months for osteoporosis. 1 mL 1 05/14/20 22 Active buPROPion XL (WELLBUTRIN XL) 150 mg 24 hr tabletIndication s:major depressive disorder Take 1 tablet (150 mg total) by mouth every morning 90 tablet 4 02/03/20 24 025 Active levothyroxine (SYNTHROID) 100 mcg tabletIndication s:hypothyroidism TAKE 1 TABLET BY MOUTH EVERY DAY 90 tablet 3 03/08/20 24 Active rosuvastatin (CRESTOR) 20 mg tabletIndication s:hyperlipidemia Take 1 tablet (20 mg total) by mouth daily 90 tablet 3 03/30/[address] (PROTONIX) 40 mg EC tabletIndication s:Stress Ulcer Prophylaxis TAKE 1 TABLET(40 MG) BY MOUTH EVERY OTHER DAY 45 tablet 3 05/10/20 24 Active sacubitriL-valsa rtan (Entresto) 24-26 mg tabletIndication s:chronic heart failure Take 1 tablet by mouth 2 (two) times a day 180 tablet 3 05/31/20 24 Active carvediloL (COREG) 3.125 mg tabletIndication s:hypertension Take 2 tablets (6.25 mg total) by mouth 2 (two) times a day with meals 360 tablet 3 07/06/19 25 026 Active FeroSuL 325 mg (65 mg iron) tabletIndication s:Iron Deficiency Anemia TAKE 1 TABLET BY MOUTH DAILY WITH BREAKFAST 100 tablet 1 08/11/19 25 Active omega-3 fatty acids (LOVAZA) 1 gram capsule TAKE 1 CAPSULE BY MOUTH TWICE DAILY 180 capsule 10/14/19 25 Active zolpidem (AMBIEN) 10 mg tabletIndication s:Sleep-Onset Insomnia TAKE 1 TABLET(10 MG) BY MOUTH EVERY NIGHT AT BEDTIME 30 tablet 2 10/28/19 25 Active spironolactone (ALDACTONE) 50 mg tablet Take 1 tablet (50 mg total) by mouth daily 30 tablet 11 11/20/19 25 026 Active potassium chloride ER (KLOR-CON) 20 mEq CR tablet Take 1 tablet (20 mEq total) by mouth daily 30 tablet 11 11/20/19 25 026 Active Klayesta powder Apply topically as needed 11/24/19 25 Active Eliquis 5 mg tabletIndication s:atrial fibrillation TAKE 1 TABLET(5 MG) BY MOUTH TWICE DAILY 28 tablet 3 12/14/19 25 Active venlafaxine (EFFEXOR) 75 mg tabletIndication s:major depressive disorder TAKE 2 TABLETS BY MOUTH EVERY MORNING BEFORE BREAKFAST 200 tablet 1 12/14/19 25 Active furosemide (LASIX) 40 mg tabletIndication s:Chronic systolic CHF (congestive heart failure) (HCC) TAKE 1 TABLET(40 MG) BY MOUTH TWICE DAILY 180 tablet 1 01/04/20 25 Active venlafaxine (EFFEXOR) 75 mg tabletIndication s:major depressive disorder TAKE 2 TABLETS BY MOUTH EVERY MORNING BEFORE BREAKFAST 180 tablet 3 12/08/19 24 025 Discontinued furosemide (LASIX) 40 mg tabletIndication s:Peripheral Edema due to Chronic Heart Failure Take 1 tablet (40 mg total) by mouth 2 (two) times a day 180 tablet 1 03/05/20 24 025 Discontinued Eliquis 5 mg tabletIndication s:atrial fibrillation TAKE 1 TABLET(5 MG) BY MOUTH TWICE DAILY 28 tablet 3 10/14/19 25 025 Discontinued Active Problems Problem Noted Date Diagnosed Date Diarrhea, unspecified type 03/07/2023 Encounter for screening colonoscopy 01/13/2023 Incontinence of feces with fecal urgency 022 Assessment & Plan (05/13/2022 4:24 PM ANALYSIS EVALUATOR): Patient continues to have episodes of fecal [...] daily Assessment & Plan (08/19/2024 5:08 PM ANALYSIS EVALUATOR): Stable, well controlled; continue rosuvastatin 20 mg daily Anticoagulation management encounter 11/19/2021 Assessment & Plan (11/25/2022 12:26 PM CDT): The patient has a [id number] score of 5 (annualized risk of stroke 6.7%). I have therefore recommended continued anticoagulation for thromboprophylaxis. The patient will follow-up with me in 12 months for an office visit and twelve- lead ECG. Assessment & Plan (11/19/2021 10:36 AM CDT): The patient has a FOC2KX1-LBWx score of 5 (annualized risk of stroke [...] b.i.d. Assessment & Plan (08/19/2024 5:08 PM ANALYSIS EVALUATOR): Stable, last echo demonstrated normal LVEF; continue [...] daily Assessment & Plan (05/13/2022 4:23 PM ANALYSIS EVALUATOR): Stable, TSH at target; continue levothyroxine 100 mcg daily Assessment & Plan (11/08/2021 4:06 PM CDT): Stable, TSH at target, in view levels are stable, the mild increase in weight Continue levothyroxine 100 mcg daily Assessment & Plan (08/14/2021 1:31 PM ANALYSIS EVALUATOR): Stable, well controlled; continue levothyroxine 100 mcg [...] month Assessment & Plan (08/19/2024 5:08 PM ANALYSIS EVALUATOR): Stable, no falls or fractures; would benefit from Prolia Will get DEXA scan and refer to infusion center for Prolia Assessment & Plan (12/02/2023 3:12 PM CDT): Stable, well controlled, no falls or fractures Continue Prolia 60 mg every 6 months Assessment & Plan (11/29/2022 12:25 PM CDT): Stable, continue Prolia injections every 6 months Assessment & Plan (05/13/2022 4:23 PM ANALYSIS EVALUATOR): Stable, no falls or fractures Will order for Prolia; patient would prefer to avoid additional oral medications given significant pill burden Assessment & Plan (01/03/2021 4:03 PM CDT): Previously been on Fosamax, will evaluate based on DEXA scan and determine if patient needs to restart therapy Encouraged patient to continue calcium a 1000 mg daily, vitamin-D 5916-1587 units daily Major depressive disorder, recurrent episode, [...] Rajni Assessment & Plan (06/03/2023 1:07 PM ANALYSIS EVALUATOR): Not currently well controlled Continue Venlafaxine 150 [...] daily Assessment & Plan (05/13/2022 4:25 PM ANALYSIS EVALUATOR): Stable, continues to have ups and Downs; reports sometimes she has some limitations to activity due to depression Will continue venlafaxine 75 mg daily Assessment & Plan (11/08/2021 4:06 PM CDT): Stable, mood is generally well controlled, but continues to have issues of benzo Continue Effexor 75 mg daily Assessment & Plan (08/14/2021 1:31 PM ANALYSIS EVALUATOR): Not well controlled; patient reports she has [...] longer provided relief for pain Patient using Jber 10, t.i.d. for pain relief Patient has limited ability to form task for extended duration due to back pain that worsens with standing for too long Patient to can continue with pain management in order to evaluate other therapies are adjustment of stimulator device to help control chronic pain Diverticula of colon 04/19/2019 Overview (04/19/2019): Added automatically from request for surgery [id number] Persistent atrial fibrillation 11/17/2018 Assessment & Plan [...] checks when necessary. The patient has a [id number] score of 5 (annualized risk of stroke 6.7%). I have therefore recommended continued anticoagulation thromboprophylaxis. The patient will follow-up with me in 12 months for an office visit and twelve- lead ECG. Assessment & Plan (08/19/2024 5:07 PM ANALYSIS EVALUATOR): Stable, rate controlled continue Eliquis 5 mg [...] checks when necessary. The patient has a XGD2NH6-ZCUb score of 5 (annualized risk of stroke 6.7%). Her appendage is absent surgically, however I have recommended continued apixaban if possible. Assessment & Plan (12/02/2023 3:13 PM CDT): Stable, well controlled, pacemaker in place; continue Eliquis 5 mg b.i.d., carvedilol 6.25 mg b.i.d. Assessment & Plan (06/05/2023 5:31 PM ANALYSIS EVALUATOR): Longstanding persistent atrial fibrillation, rendered asymptomatic by way of biventricular pacing defibrillator/AV junction ablation. A strategy of rate control and anticoagulation remains appropriate. I will not make any changes at this time. The patient has a RMG9QM0-MCKc score of 5 (annualized risk of stroke [...] pacing. Assessment & Plan (05/13/2022 4:20 PM ANALYSIS EVALUATOR): Continues to be in irregular rate and [...] b.i.d Assessment & Plan (08/14/2021 1:28 PM ANALYSIS EVALUATOR): Stable rate controlled; patient reports no significant [...] (12/05/2017): Added automatically from request for surgery [id number] CHB (complete heart block) 11/18/2017 Assessment & [...] recurrent. Assessment & Plan (06/05/2023 5:30 PM ANALYSIS EVALUATOR): Recent shocks for ventricular tachycardia/fibrillation. This occurred [...] sugar Assessment & Plan (08/19/2024 5:07 PM ANALYSIS EVALUATOR): Stable, well controlled; no major changes to [...] (implantable cardioverter-defibrillator) in place 12/25/2016 Overview (12/25/2016): [employer] In[employer] HEAVY LINE TECHNICIAN-D implanted on 02/23/14 for NICM/CHF/CHB-S/P AVN ablation. [employer] Card. Assessment & Plan (11/12/2024 4:28 PM CDT): Nonischemic cardiomyopathy, complete heart block. She is status post HEAVY LINE TECHNICIAN-D. The patient's device was interrogated and found [...] 04/01/2016 Assessment & Plan (08/14/2021 1:32 PM ANALYSIS EVALUATOR): Etiology, given recent bout of anemia from hospital; will check ferritin level; improvement will discuss medications such as gabapentin or Requip Type 2 diabetes mellitus wit h stage 3 chronic kidney disease 04/01/2016 Assessment & Plan (11/25/2024 12:27 PM CDT): Last A1c at goal; encourage low carbohydrate diet Assessment & Plan (08/19/2024 5:07 PM ANALYSIS EVALUATOR): Stable, well controlled, A1c at goal Encourage low carbohydrate diet No current medications needed Assessment & Plan (05/27/2024 4:47 PM ANALYSIS EVALUATOR): Stable, well controlled, A1c at goal; Continue [...] daily Assessment & Plan (05/13/2022 4:23 PM ANALYSIS EVALUATOR): Stable, GFR is stable, though fluctuates Continue [...] daily Assessment & Plan (08/14/2021 1:30 PM ANALYSIS EVALUATOR): Stable, not well controlled; has not been [...] daily Assessment & Plan (08/19/2024 5:07 PM ANALYSIS EVALUATOR): Stable, well controlled, blood pressure at goal; [...] daily Assessment & Plan (05/13/2022 4:21 PM ANALYSIS EVALUATOR): Stable, well controlled; BP at target, no [...] tolerated Assessment & Plan (08/19/2024 5:06 PM ANALYSIS EVALUATOR): Stable, no major changes to weight; patient [...] tolerated Assessment & Plan (05/13/2022 4:22 PM ANALYSIS EVALUATOR): Weight is generally stable, patient reports low [...] intake Assessment & Plan (08/14/2021 1:30 PM ANALYSIS EVALUATOR): Level, improving; patient has been working on [...] as water therapy for exercise options Hyperkalemia Resolved Problems Problem Noted Date Diagnosed Date Resolved Date Acute cystitis without hematuria 05/30/2021 05/30/2021 Acute cholecystitis 05/23/2021 11/09/19 22 Assessment & Plan (06/12/2021 9:29 AM ANALYSIS EVALUATOR): Remaining jayden have been removed as well [...] abdomen 10/18/2017 0 11/20/2023 Small bowel obstruction 10/18/201711/2023 Dilated idiopathic cardiomyopathy 06/10/2014 11/20/2023 Overview (09/20/2016): [...] today. Assessment & Plan (05/13/2022 4:21 PM ANALYSIS EVALUATOR): Stable, has mild swelling in bilateral legs, [...] 12/02/2023 Assessment & Plan (06/26/2021 9:19 AM ANALYSIS EVALUATOR): Continue diet as tolerates. We have asked the patient to wait another month to see if the diarrhea subsides. If not she will call us back and we will put her on cholestyramine. Continue light duty for another 4 weeks then may return to activities unrestricted. She will call back with any further questions or concerns. Encounters Date Type Department Care Team Description 12/20/2024 Telephone [facility] [address] [phone] Fernando Peterson MD 12/13/2024 7:30 AM CDT Ancillary Procedure [facility] [address] [facility] [address], [place] [address] ICD (implantable cardioverter-defibrill ator) in place (Primary Dx); Non-ischemic cardiomyopathy (HCC) 12/07/2024 2:00 PM CDT Clinical Support [facility] [address] [facility] [address] [place] [phone] Age-related osteoporosis without current pathological fracture (Primary Dx) 12/07/2024 Telephone [facility] [address] [phone] Cindy Romero RN Medical Question/Miscellaneous 12/06/2024 Telephone [facility] [address] [phone] Fernando Peterson MD Orders Needed 11/25/2024 11:00 AM CDT Office Visit [facility] [address] [phone] Fernando Peterson MD Medicare annual wellness visit, subsequent (Primary Dx); Class 3 severe obesity due to excess calories with serious comorbidity and body mass index (BMI) of 40.0 to 44.9 in adult; CHB (complete heart block) (HCC); VT (ventricular tachycardia) (HCC); CKD stage 3 due to type 2 diabetes mellitus (HCC); Type 2 diabetes mellitus with stage 3b chronic kidney disease, without long-term current use of insulin (HCC); Persistent atrial fibrillation (HCC); Hypertension associated with diabetes (HCC); Degeneration of intervertebral disc of lumbar region with discogenic back pain and lower extremity pain; Age-related osteoporosis without current pathological fracture; Chronic systolic CHF (congestive heart failure) (HCC); Dyslipidemia associated with type 2 diabetes mellitus (HCC); Major depressive disorder, recurrent episode, mild 11/25/2024 Telephone [facility] [address] [phone] Fernando Peterson MD 11/19/2024 10:45 AM CDT Office Visit [facility] [address] [facility] [address], [place] [address] Fernando Almodovar MD NICM (nonischemic cardiomyopathy) (HCC) (Primary Dx); Hypokalemia; Anemia, unspecified type; Permanent atrial fibrillation (HCC) 11/16/2024 Telephone [facility] [address] [facility] [address] [place] [address] Fernando Peterson MD 11/11/2024 4:00 PM CDT Office Visit [facility] [address] [address] Luis Angel Duarte MD Non-ischemic cardiomyopathy (HCC) (Primary Dx); ICD (implantable cardioverter-defibrill ator) in place; Permanent atrial fibrillation (HCC); SOB (shortness of breath); Anticoagulation management encounter; Persistent atrial fibrillation (HCC) 11/11/2024 3:45 PM CDT Ancillary Procedure [facility] [address] [facility] [address], [place] [address] VT (ventricular tachycardia) (HCC) (Primary Dx); SOB (shortness of breath); ICD (implantable cardioverter-defibrill ator) in place 11/11/2024 Telephone [facility] [address] [phone] Fernando Peterson MD Medical Question/Miscellaneous 11/02/2024 Results Follow-Up [facility] [address] [place] [address] Fernando Peterson MD Vitamin D 25 hydroxy, Comprehensive metabolic panel 10/22/2024 Telephone [facility] [address] [phone] Fernando Peterson MD 10/20/[address] [place] [phone] Plog, Barbara 10/20/2024 Telephone [facility] [address] [phone] Fernando Peterson MD Additional Services Or Orders 10/19/[address] [place] [phone] Fernando Peterson MD 10/18/[address] [place] [phone] Plog, Barbara 10/13/2024 Telephone [facility] [address] [phone] Fernando Peterson MD Medical Records Request from Last 3 Months Immunizations Immunization Administration Dates Next Due Influenza, Quadrivalent, Hig h Dose, Preservative Free, Intrr 03/25/2023,03/27/2022,03/06/2021,03/18 Influenza, Trivalent, High D ose, Split, Preservative Free, Intramuscular 08/19/2024,03/18/2019,03/13/2018,02/15,03/20/2016 Influenza, Trivalent, IM (MDV) 02/21/2011 Influenza, Unspecified 03/16/2023,2021,04/16/2019,04/16 Pneumococcal Conjugate PCV 13 03/16/2020 Pneumococcal Polysaccharide PPV23 03/18/2019,01/2011 Tdap 03/16/2018 Surgical History Surgery Date Site/Laterality Comments HYSTERECTOMY REPLACEMENT TOTAL KNEE BILATERAL HERNIA REPAIR IMAGE GUIDED DRAINAGE PERITONEAL OR RETROPERITONEAL FLUID COLLECTION 05/18/2018 N/A ABSCESS CATHETER INJECTION 06/01/2018 N/A ABSCESS CATHETER INJECTION 06/04/2018 N/A ABSCESS CATHETER INJECTION 06/11/2018 N/A ABSCESS CATHETER INJECTION 06/17/2018 N/A ABSCESS TUBE EXCHANGE 06/25/2018 N/A ABSCESS CATHETER INJECTION 07/02/2018 N/A REDUCTION MAMMAPLASTY 06/16/1998 - 06/15/1999 BACK SURGERY 2003, 2007, 2008 INCISIONAL HERNIA REPAIR MITRAL VALVE REPLACEMENT 05/20/2019 MVR (tissue), excision SHIELA VALVE REPLACEMENT REPLACEMENT TOTAL KNEE 06/16/2004 - 06/15/2005 Right REPLACEMENT TOTAL KNEE 06/16/2006 - 06/15/2007 Left CATARACT EXTRACTION 06/16/2012 - 06/15/2013 Bilateral COLECTOMY 06/16/2013 - 06/15/2014 OTHER SURGICAL HISTORY 06/16/2019 - 06/15/2020 pain stimulator installed in back CHOLECYSTECTOMY 05/23/2021 OTHER SURGICAL HISTORY 08/14/2022 - 09/13/2022 defibrilator replaces Medical History Medical History Date Comments AICD (automatic cardioverter/defibrillator) present 12/25/2016 [employer] HEAVY LINE TECHNICIAN-D implanted on 02/23/14 for NICM/CHF/CHB-S/P AVN ablation. [facility] Card. GERD (gastroesophageal reflux disease) Hypertension Sleep apnea Home cpap Type 2 diabetes mellitus (HCC) Hyperlipidemia Chronic back pain Scheduled to s pain management a week of 05/10/2019 Cardiomyopathy (HCC) Hypothyroidism Atrial fibrillation (HCC) Breast cancer (HCC) Chronic systolic congestive heart failure (HCC) Super obesity BMI 48 Dilated idiopathic cardiomyopathy (HCC) CHB (complete heart block) (HCC) Nonrheumatic mitral valve regurgitation Paroxysmal atrial fibrillation (HCC) Cardiomyopathy (HCC) Ventricular premature beats VT (ventricular tachycardia) (HCC) 11/18/2017 Pulmonary edema cardiac cause (HCC) Small bowel obstruction (HCC) 10/18/2017 Sacroiliitis 05/10/2019 Chronic back pain 05/23/2021 Right upper quadrant abdomin al abscess (HCC) Family History Medical History Relation Name Comments No Known Problems Daughter Colon cancer Father Prostate cancer Father Heart disease Mother Other Mother Heart issues; C ause of : Heart issues Diabetes Sister 1 Hypertension Sister 1 Pancreatic cancer Sister 1 Thyroid disease Sister 1 No Known Problems Sister 2 Hypertension Son Relation Name Status Comments Daughter Alive Father (Age 82) Mother (Age 42) Sister 1 (Age 68) Sister 2 Alive Son Alive Social History Tobacco Use Types Packs/Day Years Used Date Smoking Tobacco: Never Smokeless Tobacco: Never Tobacco Cessation:Counseling Given: Not Answered Alcohol Use Standard Drinks/Week Comments No 0 (1 standard drink = 0.6 oz pur e alcohol) OASIS D0700: Social Isolation Answer Da te Recorded Frequency of experiencing loneliness or isolatio n Often 10/04/2024 OASIS A1250: Transportation Answer Date Recorded Lack of Transportation (Medical) No 10/04/2024 Lack of Transportation (Non-Medical) No 10/04/2024 Patient Unable or Declines to Respond No 10/04/2024 OASIS B1300: Health Literacy Answer Maikel e Recorded Frequency of needing help to read materials from doctor or pharmacy Never 10/04/2024 Social Connection and Isolat ion Panel [NHANES] Answer Date Recorded In a typical week, how many times do you talk on the phone with family, friends, or neighbors? More than three times a week 03/10/2023 How often do you get togethe r with friends or relatives? Once a week 03/10/2023 How often do you attend chur ch or sikhism services? Never 03/10/2023 Do you belong to any clubs o r organizations such as pentecostal groups, unions, fraternal or athletic groups, or school groups? No 03/10/2023 How often do you attend meet ings of the clubs or organizations you belong to? Never 03/10/2023 Are you , , di vorced, , never , or living with a partner? 03/10/2023 AUDIT-C Answer Date Recorded Q1: How often do you have a drink containing alcohol? Never 03/07/2023 Q2: How many drinks containi ng alcohol do you have on a typical day when you are drinking? Patient does not drink Q3: How often do you have si x or more drinks on one occasion? Never 03/07/2023 Overall Financial Resource Strain (CARDIA) Answe r Date Recorded How hard is it for you to pa y for the very basics like food, housing, medical care, and heating? Very hard 03/10/2023 PHQ-2 Answer Date Recorded PHQ-2 Total Score (If total score is 3 or more points, staff should administer the PHQ-9) 6 11/25/2024 Hunger Vital Sign Answer Date Recorded Within the past 12 months, y ou worried that your food would run out before you got the money to buy more. Never true 03/10/20 23 Within the past 12 months, t he food you bought just didn't last and you didn't have money to get more. Never true 03/10/2023 PRAPARE - Transportation Answer Date Re corded In the past 12 months, has l ack of transportation kept you from medical appointments or from getting medications? No 02/15 In the past 12 months, has l ack of transportation kept you from meetings, work, or from getting things needed for daily living? No 03/10/2023 Housing Stability Vital Sign Answer Maikel e Recorded In the last 12 months, was t here a time when you were not able to pay the mortgage or rent on time? No 03/10/2023 In the last 12 months, how many places have you lived? 1 03/10/2023 In the last 12 months, was t here a time when you did not have a steady place to sleep or slept in a jail (including now)? No 03/10/2023 PHQ-9 Answer Date Recorded PHQ-9 Total Score 14 11/25/2024 Personal Safety Answer Date Recorded Have you ever been in or are you currently in a harmful physical or emotional relationship or is someone making you feel afraid or unsafe? Denies 03/07/2023 Education Answer Date Recorded What is the highest level of school you have completed or the highest degree you have received? Some college, no degree 03/10/2023 Comments No Sex and Gender Information Value Date Recorded Sex Assigned at Not on file Legal Sex Female 5:37 PM ANALYSIS EVALUATOR Gender Identity Not on file Sexual Orientation Not on file Obstetrics History Last Filed Vital Signs Vital Sign Reading Time Taken Comments Blood Pressure 102/55 12/07/2024 2:01 PM CDT Pulse 68 12/07/2024 2:01 PM CDT Temperature 36.1 C (96.9 F) 12/07/2024 2:01 PM CDT Respiratory Rate 20 12/07/2024 2:01 PM CDT Oxygen Saturation 97% 12/07/2024 2:01 PM CDT Inhaled Oxygen Concentration - - Weight 97.5 kg (215 lb) 11/25/2024 10:56 AM CDT Height 149.9 cm (4' 11) 11/25/2024 10:56 AM CDT Body Mass Index 43.42 11/25/2024 10:56 AM CDT Plan of Treatment Health Maintenance Due Date Last Done Comments Zoster Vaccine (1 of 2) 01/17/1992 Osteoporosis Screening-Bone Density Scan 04/20/2023 04/20/2021, 04/16/2019 Foot Exam 11/14/2023 11/13/2022, 09/19/2020 Covid-19 Vaccine (2023-07 5 season) 2024 07/16/2021, 08/19/2020, 07/22/2020 Dilated Eye Exam 04/29/2024 04/29/2022, 01/24/2020 Influenza Vaccine (#1) 2025 , 03/25/2023, 03/16/2023, Additional history exists Hemoglobin A1C 02/19/2025 08/19/2024, 06/0 11/2023, 03/25/2022, Additional history exists Albumin Creatinine Ratio, Urine 08/19/2025 08/19/2024, 06/03/2023, 03/25/2022 Lipid Panel 08/19/2025 08/19/2024, 05/0 06/2023, 10/01/2023, Additional history exists eGFR 10/29/2025 10/29/2024, 03/0 11/2024, 01/23/2024, Additional history exists Depression Screening 11/25/2025 11/25/2024, 11/25/2024, 11/20/2023, Additional history exists Fall Risk Assessment 11/25/2025 11/25/2024, 01/21/2024, 11/20/2023, Additional history exists Well Visit 65+ 11/25/2025 11/25/2024, 11/20/2023 DTaP/Tdap/Td Vaccine (2 - Td or Tdap) 03/16/2028 03/16/2018 Pneumococcal vaccine 65+ Completed 020, 03/18/2019, 02/21/2011 Hepatitis B Screening Completed 08/19/2024 Goals Goal Patient Goal Type Associated Problems Recent Progress Patient-Stated? Author [facility] Worsening( 1:41 PM ANALYSIS EVALUATOR) Radha Keene RN Note: Patient will establish a comfort-function goal and identify the pain level that will allow the patient to perform desired activities and achieve an acceptable quality of life. Medical Devices Implanted Type Area Activities Counselor Device Identifier Shelf Expiration Date Model / Serial / Lot [employer] C.R.M. Momentum Heartlogic Enduralife Smartcrt 5.37x8.18cm Is-1 Df4 G124 - [id number] - [id number] Implanted:Qty: 1 on 09/09/2022 by Luis Angel Duarte MD at [facility] ICD N/A: Chest Wall [employer] C.R.M. [id number] 07/30/2024 G124 / [id number] / Davol Inc/C R Bard [id number] Ventralight St Sepra Echo Ps 6in Monofilament Lightweight Latex Free - [id number] Implanted:Qty: 1 on 03/13/2018 by Fernando Germain MD at [facility] Mesh N/A: Abdomen [employer] Inc/C R Bard 10/12/2019 [id number] / / [id number] Description:Implanted - Abdo anthony Wall St [employer] [id number] Epic Flexfit 33mm 31mm 20mm Bioprosthesis Stent De [place] Low - [id number] - [id number] Implanted:Qty: 1 on 05/20/2019 by Pankaj Pruitt MD at [facility] Prosthetic Valve N/A: Mitral Valve St [employer] 10/18/2022 [id number] / [id number] / 50cm 8 Contact Lead Kit Implanted:Qty: 1 on 03/03/2020 by Marcial Payan MD at [facility] N/A: Back [employer] [id number] 01/11/2022 [facility] [id number]- 50 / [id number] / Description:[facility] ITEM# [id number] FLAGGED IN [facility] 03/06/20 CHARGE CODE ASSIGNED [id number] NOT YET ACTIVE 50cm 8 Contact Lead Kit Implanted:Qty: 1 on 03/03/2020 by Marcial Payan MD at [facility] N/A: Back [employer] [id number] 01/11/2022 [facility] [id number]- 50 / [id number] / Description:[facility] ITEM # [id number] FLAGGED IN [facility] 03/06/20 CHARGE CODE ASSIGNED [id number] [employer] Sc-[id number] Clik X [place] Lead Spinal Cord Stimulation Systems - [id number] - [id number] Implanted:Qty: 1 on 03/03/2020 by Marcial Payan MD at [facility] N/A: Back [employer] Ilya 07/14/2020 [id number] / [id number] / Generator Implantable Pulse Wavewriter Ipg - [id number] - [id number] Implanted:Qty: 1 on 03/03/2020 by Marcial Payan MD at [facility] N/A: Back [employer] Ilya C1820 04/13/2021 [id number] / [id number] / Explanted Type Area Activities Counselor Device Identifier Shelf Expiration Date Model / Serial / Lot Icd-02/23/2014 Implanted:02/14 by Luis Angel Duarte MD (Quantity not on file) Explanted:Qty: 1 on 09/09/2022 by Luis Angel Duarte MD at [facility] ICD Chest Wall [employer] N16 0 / [id number] / Procedures Procedure Name Priority Date/Time Associated Diagnosis Comments DEVICE CHECK - REMOTE Routine 12/13/2024 2:09 PM CDT Non-ischemic cardiomyopathy (HCC) ECG 12-LEAD Routine 11/11/2024 4:10 PM CDT Non-ischemic cardiomyopathy (HCC) ICD (implantable cardioverter-defibri llator) in place Permanent atrial fibrillation (HCC) SOB (shortness of breath) DEVICE CHECK - IN OFFICE Routine 11/11/2024 3:40 PM CDT SOB (shortness of breath) ICD (implantable cardioverter-defibri llator) in place COMPREHENSIVE METABOLIC PANEL Routine 10/29/2024 Age-related osteoporosis without current pathological fracture Encounter for monitoring denosumab therapy VITAMIN D 25 HYDROXY Routine 10/29/2024 Age-related osteoporosis without current pathological fracture Encounter for monitoring denosumab therapy HEMOGLOBIN A1C Routine 08/19/2024 2:30 PM ANALYSIS EVALUATOR Type 2 diabetes mellitus with stage 3b chronic kidney disease, without long-term current use of insulin (HCC) LIPID PANEL Routine 08/19/2024 2:30 PM ANALYSIS EVALUATOR Type 2 diabetes mellitus with stage 3b chronic kidney disease, without long-term current use of insulin (HCC) ALBUMIN CREATININE RATIO, URINE Routine 08/19/2024 2:30 PM ANALYSIS EVALUATOR Type 2 diabetes mellitus with stage 3b chronic kidney disease, without long-term current use of insulin (HCC) DIABETIC EYE EXAM Routine 04/29/2022 DEXA AXIAL SKELETON BONE DENSITY 1 OR MORE SITES Schedule Routine, Read Routine (OP Routine) 04/20/2021 1:12 PM CDT Age-related osteoporosis without current pathological fracture DIABETIC FOOT EXAM Routine 09/19/2020 from Last 3 Months or Most Recently Relevant to Health Maintenance Results * DEVICE CHECK - REMOTE (12/13/2024 2:09 PM CDT) Anatomical Region Laterality Modality Other Narrative 12/18/2024 1:37 PM CDT Table formatting from the original result was not included. BiV ICD CHECK (REMOTE) Patient ID: Juvenal Gotti is a 84 y.o. female. This patient received a [employer] BiV ICD. They had a routine remote transmission on 12/13/2024 Device implant indications: Nonischemic cardiomyopathy, CHF, s/p AVN Interrogation of the patient's device demonstrates the following: Presenting EGM: AF Bi V pacing @ 71 bpm Original Device Settings Right Ventricle Left Ventricle Sensitivity (mV) Auto Auto Pacing Outputs 2.0 V @ 0.4 ms 1.8 V @ 2.0 ms Testing Measurements Right Ventricle Left Ventricle Sensitivity (mV) 6.9 mV 13.5 mV Impedence (Ohms) 404 ohms 1114 ohms Pace Threshold 0.9 V @ 0.4 ms Not done Pacing % 96 % 96 % HV Lead Impedance 70 ohms N/A Battery Status: 6.5 years to SHERICE, charge time 10.7 seconds. Episodes last 90 days/Comments: No ventricular high rates NORMAL DEVICE FUNCTION PROGRAMMED MEDICATIONS: Anti-coagulant(s): Eliquis 5 mg twice daily Anti-arrhythmic(s): Coreg 6.125 mg twice daily PLAN: 1) [employer] BiV ICD evaluation 2) [employer] remote transmission scheduled in 3 months. 3) Programming appropriate for device settings Tessie Gonzales RN Luis Angel Duarte MD [facility] PRO CEDURES Final Result * ECG 12 lead (11/11/2024 4:10 PM CDT) Luis Angel Duarte MD ECG ORDERABLES Final R esult * DEVICE CHECK - IN OFFICE (11/11/2024 3:40 PM CDT) Anatomical Region Laterality Modality Other Narrative 11/15/2024 9:56 AM CDT Table formatting from the original result was not included. BiV ICD CHECK (IN OFFICE) Patient ID: Juvenal Gotti is a 84 y.o. female. This patient received a [employer] BiV ICD. They had a routine in office device interrogation on 11/11/24. Device implant indications: , nonischemic cardiomyopathy CHF, AVN Interrogation of the patient's device demonstrates the following: Presenting EGM: AFib Bi V paced @ 7 bpm Underlying rhythm: AFib complete heart block paced at 40 Original Device Settings Right Ventricle Left Ventricle Sensitivity (mV) Auto mV N/a mV Pacing Outputs 2.0 V @ 0.4 ms 1.8 V @ 2.0 ms Testing Measurements Right Ventricle Left Ventricle Sensitivity (mV) Paced Paced Impedence (Ohms) 392 ohms 982 ohms Pace Threshold 0.7 V @ 0.4 ms 0.8 V @ 2.0 ms Pacing % 96 % 96 % HV Lead Impedance 73 ohms N/A Battery Status: 6.5 years to SHERICE, charge time 10.7 seconds. Episodes last 90 days/Comments: AF [place] 100 % No high ventricular rate NORMAL DEVICE FUNCTION PROGRAMMED MEDICATIONS: Anti-coagulant(s): Eliquis 5 mg twice daily Anti-arrhythmic(s): Coreg 3.125 twice daily PLAN: 1) [employer] BiV ICD evaluation 2) [employer] remote transmission scheduled in 3 months. 3) Programming appropriate for device settings Tessie Gonzales RN us Luis Angel Duarte MD CV CARDIAC SERVICES PRO CEDURES Final Result * Vitamin D 25 hydroxy (10/29/2024) Pathologist [facility] SCRIBED 25-OH Vitamin D 44.85 30 - 100 ng/mL EXTERNAL LAB Blood 10/29/2024 us Fernando Peterson MD LAB BLOOD ORDERABLES Juanita l Result EXTERNAL LAB * (ABNORMAL) Comprehensive metabolic panel (10/29/2024) Pathologist [facility] SCRIBED Sodium 136 135 - 145 mmol/L EXTERNAL LAB SCRIBED Potassium 3.1(A) 3.5 - 5.3 mmol/L EXTERNAL LAB SCRIBED Chloride 97(A) 98 - 110 mmol/L EXTERNAL LAB SCRIBED Carbon Dioxide 25 21.0 - 34 mmol/L EXTERNAL LAB SCRIBED Anion Gap 17.1 10 - 20 mmol/L EXTERNAL LAB SCRIBED Urea Nitrogen (BUN) 43(A) 5 - 25 mg/dl EXTERNAL LAB SCRIBED Creatinine 1.37 0.5 - 1.4 mg/dl EXTERNAL LAB SCRIBED Glucose 92 70 - 105 mg/dl EXTERNAL LAB SCRIBED Calcium 9.1 8.6 - 10.3 mg/dl EXTERNAL LAB SCRIBED Bilirubin 0.8 0.3 - 1 mg/dl EXTERNAL LAB SCRIBED Plasma Protein 4.5(A) 5.9 - 8.0 g/dl EXTERNAL LAB SCRIBED Albumin 3.3(A) 3.5 - 5.5 g/dl EXTERNAL LAB SCRIBED Alkaline Phosphatase 104 34 - 104 Units/L EXTERNAL LAB SCRIBED Alanine Transaminase (ALT) 10 2 - 45 Units/L EXTERNAL LAB SCRIBED Aspartate Transaminase (AST) 12(A) 13 - 39 Units/L EXTERNAL LAB SCRIBED eGFR in NonAfrican Chinese 39(A) 60 - < EXTERNAL LAB Blood 10/29/2024 Fernando Peterson MD LAB BLOOD ORDERABLES Juanita l Result EXTERNAL LAB * (ABNORMAL) Albumin Creatinine Ratio, Urine (08/19/2024 2:30 PM ANALYSIS EVALUATOR) Albumin Ur 36.3 mg/L Comment: Interpretive Data No reference range established. Current interpretive data was last revised 2018. Testing performed by: [address] [address] Creatinine Ur 39.2 mg/dL GERARD VARGAS ([place]) Comment: Interpretive Data No reference range established. Current interpretive data was last revised 2018. Testing performed by: [facility], [address] [place] [address]., [address] Albumin Creatinine Ratio, Ur 93(H) 1 - 29 mg/g GERARD VARGAS ([place]) Comment:Testing performed by : [facility], [address] [place] [address]., [address] Urine 08/19/2024 2:30 PM ANALYSIS EVALUATOR 08/19/2024 5:51 PM ANALYSIS EVALUATOR Fernando Peterson MD LAB URINE ORDERABLES Juanita l Result GERARD VARGAS ([place]) 1 [facility] Department [place] [address] * (ABNORMAL) Hemoglobin A1c (08/19/2024 2:30 PM ANALYSIS EVALUATOR) Hgb A1C 6.3(H) 4.0 - 5.6 % Comment:Testing performed by : [address] [address] Estimated Average Glucose 134 mg/dL GERARD VARGAS ([place]) Comment: The ADA recommends reporting an estimated Average Glucose (eAG) with all Hemoglobin A1c results using the equation derived from a study of 507 normal and diabetic adults. Minority populations were underrepresented and children were not included. (Diabetes Care 31:5197-0188, 2008). The eAG is not equivalent to a fasting glucose. Testing performed by: [facility], [address] [place] [address]., [address] Blood 08/19/2024 2:30 PM ANALYSIS EVALUATOR 08/19/2024 5:51 PM ANALYSIS EVALUATOR us Fernando Peterson MD LAB BLOOD ORDERABLES Juanita cabrera Result GERARD VARGAS ([place]) 1 [facility] Department [place] [address] * (ABNORMAL) Lipid panel (08/19/2024 2:30 PM ANALYSIS EVALUATOR) [facility] Signature Cholesterol 94 30 - 199 mg/dL Comment: Interpretive Data Ages < or = 19 years Acceptable: <170 mg/dL Borderline high: 170-199 mg/dL High: >or= 200 mg/dL Ages > or = 20 years Desirable: <200 mg/dL Borderline high: 200-239 mg/dL High: >or= 240 mg/dL Literature References: 1. Expert Panel on Integrated Guidelines for Cardiovascular Health and Risk Reduction in Children and Adolescents. Pediatrics 2011;128:S213 2. NCEP Expert Panel. Circulation 2004;110:227 Current Interpretive Data was last revised on 2018. Testing performed by: [facility], [address] [place] [address]., [address] Triglycerides 112 <=149 mg/dL GERARD VARGAS ([place]) Comment: Interpretive Data Ages < or = 9 years Acceptable: <75 mg/dL Borderline high: 75-99 mg/dL High: >or= 100 mg/dL Ages 10 to 20 years Acceptable: <90 mg/dL Borderline high: 90-129 mg/dL High: >or= 130 mg/dL Ages > or = 20 years Desirable: <150 mg/dL Borderline high: 150-199 mg/dL High: 200-499 mg/dL Very high: >or= 499 mg/dL Literature References: 1. Expert Panel on Integrated Guidelines for Cardiovascular Health and Risk Reduction in Children and Adolescents. Pediatrics 2011;128:S213 2. NCEP Expert Panel. Circulation 2004;110:227 Current Interpretive Data was last revised on 2018. Testing performed by: [facility], [address] [place] [address]., [address] HDL 33(L) >=40 mg/dL GERARD Kinney ([place]) Comment: Interpretive Data Ages < or = 19 years Acceptable: >45 mg/dL Borderline low: 40-45 mg/dL Low: <40 mg/dL Ages > or = 20 years Desirable: >or= 60 mg/dL Low: <40 mg/dL Literature References: 1. Expert Panel on Integrated Guidelines for Cardiovascular Health and Risk Reduction in Children and Adolescents. Pediatrics 2011;128:S213 2. NCEP Expert Panel. Circulation 2004;110:227 Current Interpretive Data was last revised on 2018. Testing performed by: [facility], [address] [place] [address]., [address] LDL, calculated 40 <=129 mg/dL GERARD VARGAS ([place]) Comment: Interpretive Data Ages < or = 19 years Acceptable: <110 mg/dL Borderline high: 110-129 mg/dL High: >or= 130 mg/dL Ages > or = 20 years Optimal: <100 mg/dL Near optimal: 100-129 mg/dL Borderline high: 130-159 mg/dL High: >160 mg/dL Calculated using the Kannan LDL-C estimating equation. This equation was implemented on 2024. Prior to this date LDL-C was estimated using the Friedewald equation. Literature References: 1. Expert Panel on Integrated Guidelines for Cardiovascular Health and Risk Reduction in Children and Adolescents. Pediatrics 2011;128:S213 2. NCEP Expert Panel. Circulation 2004;110:227 3. Kannan Moran al. BENNY Cardiol. 2020 October 14;5(5):540-548. doi: 10.1001/[email or web address].2020.0013 Current Interpretive Data was last revised on 2024. Testing performed by: [facility], [address] [place] [address]., [address] Non-HDL Cholesterol 61 mg/dL [facility] ([place]) Comment: Interpretive Data Ages < or = 19 years Acceptable: <120 mg/dL Borderline high: 120-144 mg/dL High: >145 mg/dL Ages > or = 20 years When triglycerides are >200 mg/dL, Non-HDL cholesterol is a secondary target of therapy with treatment goals that are 30 mg/dL greater than the LDL cholesterol target. Literature References: 1. Expert Panel on Integrated Guidelines for Cardiovascular Health and Risk Reduction in Children and Adolescents. Pediatrics 2011;128:S213 2. NCEP Expert Panel. Circulation 2004;110:227 Current Interpretive Data was last revised on 2018. Testing performed by: [facility], [address] [place] [address]., [address] Chol/HDL ratio 3 ABRAHAM VARGAS ([place]) Comment:Testing performed by : [facility], [address] [place] [address]., [address] Blood 08/19/2024 2:30 PM ANALYSIS EVALUATOR 08/19/2024 5:51 PM ANALYSIS EVALUATOR Fernando Peterson MD LAB BLOOD ORDERABLES Juanita l Result GERARD VARGAS ([place]) 1 [facility] Department [place] [address] * Diabetic Eye Exam (04/29/2022) Historical Provider HEALTH MAINTENANCE Final Result * Dexa Axial Skeleton Bone Density 1 Or 2 Site (04/20/2021 1:12 PM CDT) Anatomical Region Laterality Modality Body N/A Other 04/20/2021 3:07 PM CDT Narrative 04/20/2021 3:09 PM CDT EXAM DESCRIPTION: DEXA AXIAL SKELETON BONE DENSITY 1 OR MORE SITES REASON FOR STUDY: 81 y/o year old F with given history of screening. Activities Counselor/Model: [email or web address] SL (S/N [id number]) CLINICAL INFORMATION: Current height: 59 inches Maximum height: 62 inches Weight: 262.6 pounds Risk factors: None COMPARISON: 04/16/2019 FINDINGS: RIGHT HIP Total BMD is 0.919 g/cm2 T-score is -0.2 Most recent prior BMD was 0.876 g/cm2 There has been a 5% increase in BMD which is statistically significant. Current femoral neck BMD is 0.738 g/cm2 T-score is -1.0 LEFT HIP: Current Total BMD is 0.946 g/cm2 T-score is 0.0 Most recent prior Total BMD was 0.930 g/cm2 There has been a 1.8% increase in BMD which is not statistically significant. Current femoral neck BMD is 0.683 g/cm2 T-score is -1.5 IMPRESSION: Low bone mass. Fracture risk assessment (FRAX): Based on left hip values. 10 year risk for a major osteoporotic fracture is 10 % 10 year risk for a hip fracture is 2.1 % The FRAX tool has not been validated in patients currently or previously treated with pharmacotherapy for osteoporosis. In such patients, clinical judgement must be exercised in interpreting FRAX scores as the fracture risk may be overestimated. REFERENCE: Bone mineral density: Normal (T-score above or = -1.0) Low bone mass (T-score between -1.0 and -2.5) replaces the previously used term osteopenia Osteoporosis (T-score = or below -2.5) Medical evaluation for secondary causes of low bone mineral density may be appropriate. FRAX is a World Health Organization validated fracture risk assessment tool that calculates a person's 10 year probability of a major osteoporosis related fracture and hip fracture. According to the National Osteoporosis Foundation guidelines, postmenopausal women and men age 50 or older with low bone mass and a 10 year probability of a major osteoporosis related fracture = or greater than 20% or a 10 year probability of a hip fracture = or greater than 3% should be considered for treatment. For further information, including treatment recommendations, please refer to the 2013 ISCD Official Positions (http://www.iscd.org) and the NOF's Clinician's Guide to Prevention and Treatment of Osteoporosis (http://www.nof.org/professionals/clinical-guidelines) THIS IS AN ELECTRONICALLY VERIFIED FINAL REPORT 04/20/2021 3:09 PM - Electronically signed by Lilibeth Galicia M.D. TB: TB Report ID: [id number] Reading Location: [facility] Procedure Note Lilibeth Galicia MD - 04/20/2021 EXAM DESCRIPTION: DEXA AXIAL SKELETON BONE DENSITY 1 OR MORE SITES REASON FOR STUDY: 81 y/o year old F with given history of screening. Activities Counselor/Model: [email or web address] SL (S/N [id number]) CLINICAL INFORMATION: Current height: 59 inches Maximum height: 62 inches Weight: 262.6 pounds Risk factors: None COMPARISON: 04/16/2019 FINDINGS: RIGHT HIP Total BMD is 0.919 g/cm2 T-score is -0.2 Most recent prior BMD was 0.876 g/cm2 There has been a 5% increase in BMD which is statistically significant. Current femoral neck BMD is 0.738 g/cm2 T-score is -1.0 LEFT HIP: Current Total BMD is 0.946 g/cm2 T-score is 0.0 Most recent prior Total BMD was 0.930 g/cm2 There has been a 1.8% increase in BMD which is not statisticallysignificant. Current femoral neck BMD is 0.683 g/cm2 T-score is -1.5 IMPRESSION: Low bone mass. Fracture risk assessment (FRAX): Based on left hip values. 10 year risk for a major osteoporotic fracture is 10 % 10 year risk for a hip fracture is 2.1 % The FRAX tool has not been validated in patients currently or previously treated with pharmacotherapy for osteoporosis. In such patients, clinical judgement must be exercised in interpreting FRAX scores as the fracturerisk may be overestimated. REFERENCE: Bone mineral density: Normal (T-score above or = -1.0) Low bone mass (T-score between -1.0 and -2.5) replaces thepreviously used term osteopenia Osteoporosis (T-score = or below -2.5) Medical evaluation for secondary causes of low bone mineral density may be appropriate. FRAX is a World Health Organization validated fracture risk assessmenttool that calculates a person's 10 year probability of a major osteoporosisrelated fracture and hip fracture. According to the National OsteoporosisFoundation guidelines, postmenopausal women and men age 50 or older with low bonemass and a 10 year probability of a major osteoporosis related fracture = or greater than 20% or a 10 year probability of a hip fracture = or greaterthan 3% should be considered for treatment. For further information, including treatment recommendations, please referto the 2013 ISCD Official Positions (http://www.iscd.org) and the NOF's Clinician's Guide to Prevention and Treatment of Osteoporosis (http://www.nof.org/professionals/clinical-guidelines) THIS IS AN ELECTRONICALLY VERIFIED FINAL REPORT 04/20/2021 3:09 PM - Electronically signed by Lilibeth Galicia M.D. TB: TB Report ID: [id number] Reading Location: [facility] Fernando Peterson MD IMG DXA PROCEDURES Final Result * Diabetic Foot Exam (09/19/2020) Historical Provider HEALTH MAINTENANCE Final Result from Last 3 Months or Most Recently Relevant to Health Maintenance [place] [address] MEDICARE [facility] MEDICARE [facility] [place] [address] [facility] MEDICARE SUPPLEMENT Advance Directives For more information, please contact: [phone] * Full Code (Latest Code Status on File) Date Activated Date Inactivated Comments 03/07/2023 9:27 AM 03/11/2023 7:11 PM * Full Code Date Activated Date Inactivated Comments 05/23/2021 8:22 PM 06/01/2021 10:54 PM * Full Code Date Activated Date Inactivated Comments 05/23/2021 1:06 PM 05/23/2021 8:22 PM * Full Code Date Activated Date Inactivated Comments 03/03/2020 11:21 AM 03/03/2020 5:13 PM * Full Code Date Activated Date Inactivated Comments 05/20/2019 11:59 AM 05/27/2019 8:08 PM Care Teams Construction Quality Control Manager Relationship Specialty Start Date End Date Fernando [place] [address] PCP - General Family Medicine 12/04/20 Fernando Germain MD Consulting Physician General Surgery 03/17/18 Marcial Payan MD [address] [place] [address] Surgeon Anesthesiology 03/03/20 Jus Bush MD [address] [place] [address] Consulting Physician General Surgery 06/01/21 Fernando Almodovar MD [address] [place] [address] Coal Dumping Equipment Operator Cardiology 01/08/22 Fabian Andino NP [address] [place] [address] Nurse Practitioner Urology 03/11/23
--- OUTSIDE RECORDS SUMMARY | 2025-01-05 16:25 | XMS_ITS | Encounter Summary ---
Author Organization [facility] Address [address] [place] [id number] Care Team Providers Care Helper Shear Operator Name Role Phone Fernando Germain MD Unavailable [phone] Rowdy Burton MD Primary Care Provider [phone] Brody Ny MD Primary Care Provider [phone] Rowdy Burton MD Primary Care Provider [phone] Brody Ny MD Primary Care Provider [phone] Marcial Payan MD Unavailable [phone] Selvin Damico MD Primary Care Provider Fernando Peterson MD Primary Care Provider [phone] Jus Bush MD Unavailable Fernando Almodovar MD Unavailable [phone] Fabian Andino NP Unavailable [phone] Encounter Details Date Type Department Care Team (Late st Contact Info) Description 09/09/2016 Orders Only [facility] Provider, MD Judith [address] [place] [id number] Social History Tobacco Use Types Packs/Day Years Used Date Smoking Tobacco: Never Assessed Alcohol Use Standard Drinks/Week Comments No 0 (1 standard drink = 0.6 oz pur e alcohol) Comments Unknown Sex and Gender Information Value Date Recorded Sex Assigned at Not on file Legal Sex 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 us Historical [...] documented as of this encounter Care Teams Helper Shear Operator Relationship Specialty Start Date End Date Rowdy Burton MD [address] [place] [address] PCP - General Family Medicine 11/12/18 05/05/19 Brody Ny MD [address] [place] [address] PCP - General Family Medicine 05/06/19 06/06/19 Rowdy Burton MD [address] [place] [address] PCP - General 06/07/19 10/11/19 Brody Ny MD [address] [place] [address] PCP - General Family Medicine 10/12/19 09/24/20 Selvin Damico MD [address] [place] [address] PCP - General 09/25/20 12/03/20 Fernando Peterson MD [address] [place] [address] PCP - General Family Medicine 12/04/20 Fernando Germain MD Consulting Physician General Surgery 03/17/18 Marcial Payan MD [address] [place] [address] Surgeon Anesthesiology 03/03/20 Jus Bush MD [address] [place] [address] Consulting Physician General Surgery 06/01/21 Fernando Almodovar MD [address] [place] [address] [employer] Cardiology 01/08/22 Fabian Andino NP [address] [place] [address] Nurse Practitioner Urology 03/11/23 documented as of this encounter
--- OUTSIDE RECORDS SUMMARY | 2025-01-05 16:25 | XMS_ITS | Referral Summary ---
Author Organization [facility] C Address [address] [place] [address] Care Team Providers Care Security Developer Name Role Phone Fernando Germain MD Unavailable [phone] Marcial Payan MD Unavailable [phone] Fernando Peterson MD Primary Care Provider [phone] Jus Bush MD Unavailable Fernando Almodovar MD Unavailable [phone] Fabian Andino NP Unavailable [phone] Encounters Date Type Department Care Team Description 12/20/2024 Telephone [facility] [address] [phone] Fernando Peterson MD 12/13/2024 7:30 AM CDT Ancillary Procedure [facility] [address] [facility] [address], [place] [address] ICD (implantable cardioverter-defibrill ator) in place (Primary Dx); Non-ischemic cardiomyopathy (HCC) 12/07/2024 Telephone [facility] [address] [phone] Cindy Romero RN Medical Question/Miscellaneous 12/07/2024 2:00 PM CDT Clinical Support [facility] [address] [facility] [address] [place] [phone] Age-related osteoporosis without current pathological fracture (Primary Dx) 12/06/2024 Telephone [facility] [address] [phone] Fernnado Peterson MD Orders Needed 11/25/2024 Telephone [facility] [address] [address] Fernando Peterson MD 11/25/2024 11:00 AM CDT Office Visit [facility] [address] [phone] Fernando Peterson MD Medicare annual wellness visit, [...] (HCC); Major depressive disorder, recurrent episode, mild 11/19/2024 10:45 AM CDT Office Visit [facility] [address] [facility] [address] [place] [phone] Fernando Almodovar MD NICM (nonischemic cardiomyopathy) (HCC) (Primary Dx); Hypokalemia; Anemia, unspecified type; Permanent atrial fibrillation (HCC) 11/16/[address] [place] [phone] Fernando Peterson MD 11/11/2024 Telephone [facility] [address] [phone] Fernando Peterson MD Medical Question/Miscellaneous 11/11/2024 4:00 PM CDT Office Visit [facility] [address] [place] [phone] Luis Angel Duarte MD Non-ischemic cardiomyopathy (HCC) (Primary Dx); ICD (implantable cardioverter-defibrill ator) in place; Permanent atrial fibrillation (HCC); SOB (shortness of breath); Anticoagulation management encounter; Persistent atrial fibrillation (HCC) 11/11/2024 3:45 PM CDT Ancillary Procedure [facility] [address] [place] [address] [place] [phone] VT (ventricular tachycardia) (HCC) (Primary Dx); SOB (shortness of breath); ICD (implantable cardioverter-defibrill ator) in place 11/02/2024 Results Follow-Up [facility] [address] [phone] Fernando Peterson MD Vitamin D 25 hydroxy, Comprehensive metabolic panel 10/22/2024 Telephone [facility] [address] [phone] Fernando Peterson MD 10/20/[address] [phone] [facility] 10/20/2024 Telephone [facility] [address] [phone] Fernando Peterson MD Additional Services Or Orders 10/19/[address] [address] Fernando Peterson MD 10/18/[address] [address] [facility] [place] 10/13/2024 Telephone [facility] [address] [address] Fernando Peterson MD Medical Records Request from Last 3 Months Allergies Active Allergy Reactions Criticality Noted Date [...] 022 Assessment & Plan (05/13/2022 4:24 PM GRADES 1 THRU 6 VISITING TEACHER): Patient continues to have episodes of fecal [...] daily Assessment & Plan (08/19/2024 5:08 PM GRADES 1 THRU 6 VISITING TEACHER): Stable, well controlled; continue rosuvastatin 20 mg daily Anticoagulation management encounter 11/19/2021 Assessment & Plan (11/25/2022 12:26 PM CDT): The patient has a OSF7CY8-KTLj score of 5 (annualized risk of stroke 6.7%). I have therefore recommended continued anticoagulation for thromboprophylaxis. The patient will follow-up with me in 12 months for an office visit and twelve- lead ECG. Assessment & Plan (11/19/2021 10:36 AM CDT): The patient has a UKB0SS3-TANe score of 5 (annualized risk of stroke [...] b.i.d. Assessment & Plan (08/19/2024 5:08 PM GRADES 1 THRU 6 VISITING TEACHER): Stable, last echo demonstrated normal LVEF; continue [...] daily Assessment & Plan (05/13/2022 4:23 PM GRADES 1 THRU 6 VISITING TEACHER): Stable, TSH at target; continue levothyroxine 100 mcg daily Assessment & Plan (11/08/2021 4:06 PM CDT): Stable, TSH at target, in view levels are stable, the mild increase in weight Continue levothyroxine 100 mcg daily Assessment & Plan (08/14/2021 1:31 PM GRADES 1 THRU 6 VISITING TEACHER): Stable, well controlled; continue levothyroxine 100 mcg [...] month Assessment & Plan (08/19/2024 5:08 PM GRADES 1 THRU 6 VISITING TEACHER): Stable, no falls or fractures; would benefit from Prolia Will get DEXA scan and refer to [facility] center for Prolia Assessment & Plan (12/02/2023 3:12 PM CDT): Stable, well controlled, no falls or fractures Continue Prolia 60 mg every 6 months Assessment & Plan (11/29/2022 12:25 PM CDT): Stable, continue Prolia injections every 6 months Assessment & Plan (05/13/2022 4:23 PM GRADES 1 THRU 6 VISITING TEACHER): Stable, no falls or fractures Will order for Prolia; patient would prefer to avoid additional oral medications given significant pill burden Assessment & Plan (01/03/2021 4:03 PM CDT): Previously been on Fosamax, will evaluate based on DEXA scan and determine if patient needs to restart therapy Encouraged patient to continue calcium a 1000 mg daily, vitamin-D 1709-8999 units daily Major depressive disorder, recurrent episode, [...] Rajni Assessment & Plan (06/03/2023 1:07 PM GRADES 1 THRU 6 VISITING TEACHER): Not currently well controlled Continue Venlafaxine 150 [...] daily Assessment & Plan (05/13/2022 4:25 PM GRADES 1 THRU 6 VISITING TEACHER): Stable, continues to have ups and Downs; reports sometimes she has some limitations to activity due to depression Will continue venlafaxine 75 mg daily Assessment & Plan (11/08/2021 4:06 PM CDT): Stable, mood is generally well controlled, but continues to have issues of benzo Continue Effexor 75 mg daily Assessment & Plan (08/14/2021 1:31 PM GRADES 1 THRU 6 VISITING TEACHER): Not well controlled; patient reports she has [...] longer provided relief for pain Patient using [place] 10, t.i.d. for pain relief Patient has limited ability to form task for extended duration due to back pain that worsens with standing for too long Patient to can continue with pain management in order to evaluate other therapies are adjustment of stimulator device to help control chronic pain Diverticula of colon 04/19/2019 Overview (04/19/2019): Added automatically from request for surgery [id number] Persistent atrial fibrillation 11/17/2018 Assessment & Plan [...] checks when necessary. The patient has a GUD5LH4-QSPl score of 5 (annualized risk of stroke 6.7%). I have therefore recommended continued anticoagulation thromboprophylaxis. The patient will follow-up with me in 12 months for an office visit and twelve- lead ECG. Assessment & Plan (08/19/2024 5:07 PM GRADES 1 THRU 6 VISITING TEACHER): Stable, rate controlled continue Eliquis 5 mg [...] checks when necessary. The patient has a XOR3MY7-TJJu score of 5 (annualized risk of stroke 6.7%). Her appendage is absent surgically, however I have recommended continued apixaban if possible. Assessment & Plan (12/02/2023 3:13 PM CDT): Stable, well controlled, pacemaker in place; continue Eliquis 5 mg b.i.d., carvedilol 6.25 mg b.i.d. Assessment & Plan (06/05/2023 5:31 PM GRADES 1 THRU 6 VISITING TEACHER): Longstanding persistent atrial fibrillation, rendered asymptomatic by way of biventricular pacing defibrillator/AV junction ablation. A strategy of rate control and anticoagulation remains appropriate. I will not make any changes at this time. The patient has a SDL4FY1-AGOi score of 5 (annualized risk of stroke [...] pacing. Assessment & Plan (05/13/2022 4:20 PM GRADES 1 THRU 6 VISITING TEACHER): Continues to be in irregular rate and [...] b.i.d Assessment & Plan (08/14/2021 1:28 PM GRADES 1 THRU 6 VISITING TEACHER): Stable rate controlled; patient reports no significant [...] (12/05/2017): Added automatically from request for surgery [id number] CHB (complete heart block) 11/18/2017 Assessment & [...] recurrent. Assessment & Plan (06/05/2023 5:30 PM GRADES 1 THRU 6 VISITING TEACHER): Recent shocks for ventricular tachycardia/fibrillation. This occurred [...] sugar Assessment & Plan (08/19/2024 5:07 PM GRADES 1 THRU 6 VISITING TEACHER): Stable, well controlled; no major changes to [...] (implantable cardioverter-defibrillator) in place 12/25/2016 Overview (12/25/2016): [employer] Incepta MERCHANDISE PLANNER-D implanted on 02/23/14 for NICM/CHF/CHB-S/P AVN ablation. Gerald ChapinJustina Card. Assessment & Plan (11/12/2024 4:28 PM CDT): Nonischemic cardiomyopathy, complete heart block. She is status post MERCHANDISE PLANNER-D. 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 04/01/2016 Assessment & Plan (11/25/2024 12:27 PM CDT): Last A1c at goal; encourage low carbohydrate diet Assessment & Plan (08/19/2024 5:07 PM GRADES 1 THRU 6 VISITING TEACHER): Stable, well controlled, A1c at goal Encourage low carbohydrate diet No current medications needed Assessment & Plan (05/27/2024 4:47 PM GRADES 1 THRU 6 VISITING TEACHER): Stable, well controlled, A1c at goal; Continue [...] daily Assessment & Plan (05/13/2022 4:23 PM GRADES 1 THRU 6 VISITING TEACHER): Stable, GFR is stable, though fluctuates Continue [...] daily Assessment & Plan (08/14/2021 1:30 PM GRADES 1 THRU 6 VISITING TEACHER): Stable, not well controlled; has not been [...] daily Assessment & Plan (08/19/2024 5:07 PM GRADES 1 THRU 6 VISITING TEACHER): Stable, well controlled, blood pressure at goal; [...] daily Assessment & Plan (05/13/2022 4:21 PM GRADES 1 THRU 6 VISITING TEACHER): Stable, well controlled; BP at target, no [...] tolerated Assessment & Plan (08/19/2024 5:06 PM GRADES 1 THRU 6 VISITING TEACHER): Stable, no major changes to weight; patient [...] tolerated Assessment & Plan (05/13/2022 4:22 PM GRADES 1 THRU 6 VISITING TEACHER): Weight is generally stable, patient reports low [...] intake Assessment & Plan (08/14/2021 1:30 PM GRADES 1 THRU 6 VISITING TEACHER): Level, improving; patient has been working on [...] 22 Assessment & Plan (06/12/2021 9:29 AM GRADES 1 THRU 6 VISITING TEACHER): Remaining jayden have been removed as well [...] today. Assessment & Plan (05/13/2022 4:21 PM GRADES 1 THRU 6 VISITING TEACHER): Stable, has mild swelling in bilateral legs, [...] 12/02/2023 Assessment & Plan (06/26/2021 9:19 AM GRADES 1 THRU 6 VISITING TEACHER): Continue diet as tolerates. We have asked the patient to wait another month to see if the diarrhea subsides. If not she will call us back and we will put her on cholestyramine. Continue light duty for another 4 weeks then may return to activities unrestricted. She will call back with any further questions or concerns. Immunizations Immunization Administration Dates Next Due Influenza, Quadrivalent, Hig h Dose, Preservative Free, Intrr 03/25/2023,03/27/2022,03/06/2021,03/18 Influenza, Trivalent, High D ose, Split, Preservative Free, Intramuscular 08/19/2024,03/18/2019,03/13/2018,02/15,03/20/2016 Influenza, Trivalent, IM (MDV) 02/21/2011 Influenza, Unspecified 03/16/2023,2021,04/16/2019,04/16 Pneumococcal Conjugate PCV 13 03/16/2020 Pneumococcal Polysaccharide PPV23 03/18/2019,01/2011 Tdap 03/16/2018 Social History Tobacco Use Types Packs/Day Years [...] often do you attend chur ch or amish services? Never 03/10/2023 Do you belong to any clubs o r organizations such as baptism groups, unions, fraternal or athletic groups, or [...] place to sleep or slept in a mcc (including now)? No 03/10/2023 PHQ-9 Answer Date [...] on file Legal Sex Female 5:37 PM GRADES 1 THRU 6 VISITING TEACHER Gender Identity Not on file Sexual Orientation [...] 11/25/2024 10:56 AM CDT Plan of Treatment Not on file Goals Goal Patient Goal Type Associated Problems Recent Progress Patient-Stated? Author BH-Pain Behavioral Health Worsening( 1:41 PM GRADES 1 THRU 6 VISITING TEACHER) Radha Keene RN Note: Patient will establish a comfort-function goal and identify the pain level that will allow the patient to perform desired activities and achieve an acceptable quality of life. Medical Devices Implanted Type Area Gate Cutter Device Identifier Shelf Expiration Date Model / Serial / Lot [employer] C.R.M. Momentum Heartlogic Enduralife Smartcrt 5.37x8.18cm Is-1 Df4 G124 - [id number] - [id number] Implanted:Qty: 1 on 09/09/2022 by Luis Angel Duarte MD at [facility] ICD N/A: Chest Wall [employer] C.R.M. [id number] 07/30/2024 G124 / [id number] / [employer] Inc/C R Bard [id number] Ventralight St Sepra Echo Ps 6in Monofilament Lightweight Latex Free - [id number] Implanted:Qty: 1 on 03/13/2018 by Fernando Germain MD at [facility] Mesh N/A: Abdomen [employer]/C R Bard 10/12/2019 [id number] / / [id number] Description:Implanted - Abdo anthony Wall St [employer] Inc [id number] Epic Flexfit 33mm 31mm 20mm Bioprosthesis Stent De Leon Low - [id number] - [id number] Implanted:Qty: 1 on 05/20/2019 by Pankaj Pruitt MD at [facility] Prosthetic Valve N/A: Mitral Valve St [employer] Inc 10/18/2022 [id number] / [id number] / 50cm 8 Contact Lead Kit Implanted:Qty: 1 on 03/03/2020 by Marcial Payan MD at [facility] N/A: Back [employer] C1779 01/11/2022 [id number] 50 / [id number] / Description:[facility] ITEM# [id number] FLAGGED IN [facility] 03/06/20 CHARGE CODE ASSIGNED [id number] NOT YET ACTIVE 50cm 8 Contact Lead Kit Implanted:Qty: 1 on 03/03/2020 by Marcial Payan MD at [facility] N/A: Back [employer] C1778 01/11/2022 [id number] 50 / [id number] / Description:[facility] ITEM # [id number] 1 FLAGGED IN [facility] 03/06/20 CHARGE CODE ASSIGNED [id number] Sell[employer] Scientific Sc-4318 Clik X [place] Lead Spinal Cord Stimulation Systems - [id number] - [id number] Implanted:Qty: 1 on 03/03/2020 by Marcial Payan MD at [facility] N/A: Back [employer] Ilya 07/14/2020 MA-[id number] / [id number] / Generator Implantable Pulse Wavewriter Ipg - [id number] - [id number] Implanted:Qty: 1 on 03/03/2020 by Marcial Payan MD at [facility] N/A: Back [employer] Ilya C1820 04/13/2021 [id number] / [id number] / Explanted Type Area Gate Cutter Device Identifier Shelf Expiration Date Model / Serial / Lot Icd-02/23/2014 Implanted:02/14 by Luis Angel Duarte MD (Quantity not on file) Explanted:Qty: 1 on 09/09/2022 by Luis Angel Duarte MD at [facility] ICD Chest Wall [employer] N16 0 / [id number] / Procedures Procedure Name Priority Date/Time Associated [...] therapy HEMOGLOBIN A1C Routine 08/19/2024 2:30 PM GRADES 1 THRU 6 VISITING TEACHER Type 2 diabetes mellitus with stage 3b chronic kidney disease, without long-term current use of insulin (HCC) LIPID PANEL Routine 08/19/2024 2:30 PM GRADES 1 THRU 6 VISITING TEACHER Type 2 diabetes mellitus with stage 3b chronic kidney disease, without long-term current use of insulin (HCC) ALBUMIN CREATININE RATIO, URINE Routine 08/19/2024 2:30 PM GRADES 1 THRU 6 VISITING TEACHER Type 2 diabetes mellitus with stage 3b [...] 84 y.o. female. This patient received a [employer] BiV ICD. They had a routine remote [...] Coreg 6.125 mg twice daily PLAN: 1) [employer] BiV ICD evaluation 2) [employer] scientific remote transmission scheduled in 3 months. [...] 84 y.o. female. This patient received a [employer] BiV ICD. They had a routine [...] 10.7 seconds. Episodes last 90 days/Comments: AF Eden 100 % No high ventricular rate NORMAL DEVICE FUNCTION PROGRAMMED MEDICATIONS: Anti-coagulant(s): Eliquis 5 mg twice daily Anti-arrhythmic(s): Coreg 3.125 twice daily PLAN: 1) [employer] BiV ICD evaluation 2) [employer] remote transmission scheduled in 3 months. 3) Programming appropriate for device settings Tessie Gonzales, CORWIN us Luis Angel Duarte MD CV CARDIAC SERVICES PRO CEDURES Final Result * Vitamin D 25 hydroxy (10/29/2024) [facility] SCRIBED 25-OH Vitamin D 44.85 30 - 100 ng/mL EXTERNAL LAB Blood 10/29/2024 us Fernando Peterson MD LAB BLOOD ORDERABLES Juanita l Result EXTERNAL LAB * (ABNORMAL) Comprehensive metabolic panel (10/29/2024) [facility] SCRIBED Sodium 136 135 - 145 [...] Units/L EXTERNAL LAB SCRIBED eGFR in NonAfrican Lithuanian 39(A) 60 - < EXTERNAL LAB Blood 10/29/2024 Fernando Peterson MD LAB BLOOD ORDERABLES Juanita l Result EXTERNAL LAB * (ABNORMAL) Albumin Creatinine Ratio, Urine (08/19/2024 2:30 PM GRADES 1 THRU 6 VISITING TEACHER) Albumin Ur 36.3 mg/L Comment: Interpretive Data No reference range established. Current interpretive data was last revised 2018. Testing performed by: [address] [address] Creatinine Ur 39.2 mg/dL [facility] Comment: Interpretive Data No reference range established. Current interpretive data was last revised 2018. Testing performed by: [address] [address] Albumin Creatinine Ratio, Ur 93(H) 1 - 29 mg/g [facility] ([place] Comment:Testing performed by : [address] [address] Urine 08/19/2024 2:30 PM GRADES 1 THRU 6 VISITING TEACHER 08/19/2024 5:51 PM GRADES 1 THRU 6 VISITING TEACHER Fernando Peterson MD LAB URINE ORDERABLES Juanita l Result Performing Organization Address [facility]/ZIP Co de Phone Number [facility] ([place]) [address] [facility] [place] [address] * (ABNORMAL) Hemoglobin A1c (08/19/2024 2:30 PM GRADES 1 THRU 6 VISITING TEACHER) Hgb A1C 6.3(H) 4.0 - 5.6 % Comment:Testing performed by : [facility] [address] [place] [address]., [address] Estimated Average Glucose 134 mg/dL [facility] VARGAS ([place]) Comment: The ADA recommends reporting an estimated Average Glucose (eAG) with all Hemoglobin A1c results using the equation derived from a study of 507 normal and diabetic adults. Minority populations were underrepresented and children were not included. (Diabetes Care 31:9047-0616, 2008). The eAG is not equivalent to a fasting glucose. Testing performed by: [address] [address] Blood 08/19/2024 2:30 PM GRADES 1 THRU 6 VISITING TEACHER 08/19/2024 5:51 PM GRADES 1 THRU 6 VISITING TEACHER us Fernando Peterson MD LAB BLOOD ORDERABLES Juanita cabrera Result [facility] VARGAS ([place]) [address] [facility] Department of Laboratories [place], [place] [id number] * (ABNORMAL) Lipid panel (08/19/2024 2:30 PM GRADES 1 THRU 6 VISITING TEACHER) Cholesterol 94 30 - 199 mg/dL Comment: [...] last revised on 2018. Testing performed by: [facility], [address] [place] [address], [place]., [address] Triglycerides 112 <=149 mg/dL [facility] VARGAS ([place]) [...] last revised on 2018. Testing performed by: [facility], [address] [place] [address]., [address] HDL 33(L) >=40 mg/dL GERARD Kinney ([place]) [...] last revised on 2018. Testing performed by: [facility], [address] [place] [address]., [address] LDL, calculated 40 <=129 mg/dL GERARD VARGAS [...] last revised on 2024. Testing performed by: [address] [address] Non-HDL Cholesterol 61 mg/dL [facility] VARGAS ([facility]) Comment: Interpretive Data Ages < or = [...] last revised on 2018. Testing performed by: [facility], [address] [place] [address]., [address] Chol/HDL ratio 3 ABRAHAM VARGAS ([place]) Comment:Testing performed by : [facility], [address] [place] [address]., [address] Blood 08/19/2024 2:30 PM GRADES 1 THRU 6 VISITING TEACHER 08/19/2024 5:51 PM GRADES 1 THRU 6 VISITING TEACHER Fernando Peterson MD LAB BLOOD ORDERABLES Juanita l Result GERARD SAM ([place]) [address] [facility] Department of Laboratories [place], [place] [id number] * Diabetic Eye Exam (04/29/2022) Historical Provider [...] old F with given history of screening. Gate Cutter/Model: [employer]NA [employer]PPORT[employer] SL (S/N 28515) CLINICAL INFORMATION: Current height: 59 inches Maximum [...] Lilibeth Galicia M.D. TB: TB Report ID: [id number] Reading Location: [facility] Procedure Note Lilibeth Galicia MD - 04/20/2021 EXAM DESCRIPTION: DEXA AXIAL SKELETON BONE DENSITY 1 OR MORE SITES REASON FOR STUDY: 81 y/o year old F with given history of screening. Gate Cutter/Model: [employer]PPORTUNIT[employer] SL (S/N 33510) CLINICAL INFORMATION: Current height: 59 inches Maximum [...] Lilibeth Galicia M.D. TB: TB Report ID: [id number] Reading Location: [facility] Fernando Peterson MD IMG DXA PROCEDURES Final Result * Diabetic Foot Exam (09/19/2020) Historical Provider HEALTH MAINTENANCE Final Result from Last 3 Months or Most Recently Relevant to Health Maintenance Insurance MEDICARE [facility] MEDICARE [facility] MEDICARE MEDICARE [facility] MEDICARE SUPPLEMENT Advance Directives For more information, please contact: [phone] * Full Code (Latest Code Status on [...] 11:59 AM 05/27/2019 8:08 PM Care Teams Security Developer Relationship Specialty Start Date End Date Fernando [place] [address] PCP - General Family Medicine 12/04/20 Fernando Germain MD Consulting Physician General Surgery 03/17/18 Marcial Paayn MD [address] [place] [address] Surgeon Anesthesiology 03/03/20 Jus Bush MD [address] [place] [address] Consulting Physician General Surgery 06/01/21 Fernando Almodovar MD [address] [place] [address] Panel Wirer Cardiology 01/08/22 Fabian Andino NP [address] [place] [address] Nurse Practitioner Urology 03/11/23
--- OUTSIDE RECORDS SUMMARY | 2025-01-05 16:25 | XMS_ITS | Encounter Summary ---
Author Organization [facility] Address [address] [facility] [address] [place] [id number] Care Team Providers Care Monitoring Analyst Name Role Phone Fernando Germain MD Unavailable [phone] Rowdy Burton MD Primary Care Provider [phone] Brody Ny MD Primary Care Provider [phone] Rowdy Burton MD Primary Care Provider [phone] Brody Ny MD Primary Care Provider [phone] Marcial Payan MD Unavailable [phone] Selvin Damico MD Primary Care Provider Fernando Peterson MD Primary Care Provider [phone] Jus Bush MD Unavailable Fernando Almodovar MD Unavailable [phone] Fabian Andino NP Unavailable [phone] Encounter Details Date Type Department Care Team (Late st Contact Info) Description 11/07/2016 Orders Only Ar[facility] Provider, MD Judith [address] [place] [address] Social History Tobacco Use Types Packs/Day Years Used Date Smoking Tobacco: Never Assessed Alcohol Use Standard Drinks/Week Comments No 0 (1 standard drink = 0.6 oz pur e alcohol) Comments Unknown Sex and Gender Information Value Date Recorded Sex Assigned at Not on file Legal Sex Female 5:37 PM [employer] Gender Identity Not on file Sexual Orientation Not on file documented as of this encounter Plan of Treatment Not on file documented as of this encounter Procedures Procedure Name Priority Date/Time Associated Diagnosis Comments CARDIOLOGY REPORT 11/07/2016 documented in this encounter Results * CARDIOLOGY REPORT (11/07/2016) Anatomical Region Laterality Modality Other Narrative 11/07/2016 Ordered by an unspecified provider. us Historical [...] documented as of this encounter Care Teams Monitoring Analyst Relationship Specialty Start Date End Date Rowdy Burton MD [address] [place] [address] PCP - General Family Medicine 11/12/18 05/05/19 Brody Ny MD [address] [place] [address] PCP - General Family Medicine 05/06/19 06/06/19 Rowdy Burton MD [address] [place] [address] PCP - General 06/07/19 10/11/19 Brody Ny MD [address] [place] [address] PCP - General Family Medicine 10/12/19 09/24/20 Selvin Damico MD [address] [place] [address] PCP - General 09/25/20 12/03/20 Fernando Peterson MD [address] [place] [address] PCP - General Family Medicine 12/04/20 Fernando Germain MD Consulting Physician General Surgery 03/17/18 Marcial Payan MD [address] [place] [address] Surgeon Anesthesiology 03/03/20 Jus Bush MD [address] [place] [address] Consulting Physician General Surgery 06/01/21 Fernando Almodovar MD [address] [place] [address] Property Economist Cardiology 01/08/22 Fabian Andino NP [address] [place] [address] Nurse Practitioner Urology 03/11/23 documented as of this encounter
--- NOTE | 2025-01-05 17:04 | ED_ITS ---
HPI - Wound/Laceration General Chief Complaint: Wound/Laceration Stated Complaint: Fall Injury /Laceration to Head Time Seen by Provider: 01/05/25 17:05 Source: patient Mode of arrival: ambulatory Limitations: no limitations History of Present Illness HPI narrative: 84-year-old female presented for complaint of scalp laceration. She states she was climbing into her son's truck when she fell and struck the side of her head on the car door. Patient is taking Eliquis and was advised by her half-way to seek evaluation. She currently denies headache, dizziness, nausea vomiting, confusion or lethargy. Bleeding is controlled on arrival. No treatment prior to arrival. Related Data Home Medications ?Medication ?Instructions ?Recorded ?Confirmed ?Last Taken ?Type apixaban 5 mg tablet (Eliquis) 5 mg PO DAILY 02/09/21 02/09/21 Unknown History azelastine 137 mcg (0.1 %) nasal See Rx Instructions .Route .COMPLEX 02/09/21 02/09/21 Unknown History spray carvedilol 3.125 mg tablet 3.125 mg PO BID 02/09/21 02/09/21 Unknown History ferrous sulfate 325 mg (65 mg 325 mg PO DAILY 02/09/21 02/09/21 Unknown History iron) tablet (FeroSul) hydrocodone 10 mg-acetaminophen 1 tablet PO QID PRN Pain 02/09/21 02/09/21 Unknown History 325 mg tablet levothyroxine 100 mcg tablet 100 mcg PO DAILY 02/09/21 02/09/21 Unknown History metformin 500 mg tablet,extended 500 mg PO BID 02/09/21 02/09/21 Unknown History release 24 hr pantoprazole 40 mg tablet,delayed 40 mg PO DAILY 02/09/21 02/09/21 Unknown History release potassium chloride 20 mEq 20 meq PO DAILY 02/09/21 02/09/21 Unknown History tablet,extended release(part/cryst) simvastatin 10 mg tablet 10 mg PO DAILY 02/09/21 02/09/21 Unknown History spironolactone 25 mg tablet 25 mg PO DAILY 02/09/21 02/09/21 Unknown History venlafaxine 75 mg tablet 75 mg PO DAILY 02/09/21 02/09/21 Unknown History zolpidem 10 mg tablet 10 mg PO HS PRN Sleep 08/27/21 08/27/21 Unknown History Allergies Allergy/AdvReac Type Severity Reaction Status Date / Time Sulfa (Sulfonamide Allergy Unknown Rash Verified 01/05/25 16:33 Antibiotics) PROPOXYPHENE HCL Allergy Intermediate Unknown Uncoded 01/05/25 16:33 Review of Systems Review of Systems: CONSTITUTIONAL: Denies body aches, fever, chills, or sweats. EYES: Denies visual changes, redness, or discharge. ENT: Denies rhinorrhea, congestion CARDIOVASCULAR: Denies chest pain, palpitations, or edema. RESPIRATORY: Denies cough or dyspnea. GASTROINTESTINAL: Denies abdominal pain, nausea, vomiting, or diarrhea. SKIN: Reports scalp laceration MUSCULOSKELETAL: Denies back pain, joint pain, or myalgia. NEUROLOGIC: Denies headache, numbness, tingling, or weakness. PMFSH Comments At time of signature, I have reviewed and agree with nursing past medical, surgical, social and family history unless otherwise noted. Please see nursing chart for further information. There is no relevant family history pertinent to the presenting complaint Exam Narrative: GENERAL: Well-appearing HEAD: Right scalp just superior to ear with 3 cm subcutaneous hematoma, pinpoint superficial abrasion to the site, no active bleeding. EYES: conjunctivae clear, and EOMI. ENT: Mucous membranes moist. Oropharynx without edema, erythema or lesions. NECK: Supple. No lymphadenopathy CHEST: Clear to auscultation. HEART: Regular rate and rhythm. SKIN: Warm, dry. NEURO: Alert and oriented x3. Course Course Emergency Course: Patient is aware of diagnosis, understands and agrees to treatment plan. Antic ipatory guidance given. Patient agrees to follow-up as directed and is aware of reasons to seek care at the emergency department. Portions of this record may have been created with voice recognition software Level of Care: Express Care Visit Vital Signs Vital signs: Vital Signs Temperature 97.6 F 01/05/25 16:23 Pulse Rate 88 01/05/25 16:23 Respiratory Rate 22 H 01/05/25 16:23 Blood Pressure 94/43 L 01/05/25 16:23 Pulse Oximetry 98 01/05/25 16:23 Oxygen Delivery Room Air 01/05/25 16:23 Temperature 97.6 F 01/05/25 16:23 Pulse Rate 88 01/05/25 16:23 Respiratory Rate 22 H 01/05/25 16:23 Blood Pressure 94/43 L 01/05/25 16:23 Pulse Oximetry 98 01/05/25 16:23 Oxygen Delivery Room Air 01/05/25 16:23 Reviewed MDM - Wound/Laceration MDM Narrative Medical decision making narrative: Discussed physical exam findings Consistent with scalp hematoma and small abrasion, no active bleeding, no indication for wound closure.. Advised supportive measures and signs/symptoms to go to the ER. Pt is appropriate for outpt treatment and f/u. Differential Diagnosis Differential diagnosis: Likely laceration, abrasion and avulsion of skin Discharge Plan Discharge Clinical Impression: Contusion of scalp Patient Disposition: Home Condition: Stable Instructions: Antibiotic Form, Scalp Contusion in Adults (ED) Additional Instructions: Keep the area clean and dry - cleanse with warm water and mild soap and allow to fully dry. Watch for worsening symptoms including headaches, dizziness, nausea, falling or confusion ; you must go to the ER for any of the symptoms. Watch for worsening symptoms of the wound including pain, redness, swelling, streaking, pus/drainage, fever. Go to the ER with any of these symptoms or concerns. Follow up with primary care provider as needed. Patient Language: Italian Prescriptions: No Action hydrocodone-acetaminophen 10-325 mg tablet 1 tablet PO QID PRN (Reason: Pain) spironolactone 25 mg tablet 25 mg PO DAILY pantoprazole 40 mg tablet,delayed release (DR/EC) 40 mg PO DAILY azelastine 137 mcg (0.1 %) aerosol,spray See Rx Instructions .ROUTE .COMPLEX Rx Instructions: as prescribed venlafaxine 75 mg tablet 75 mg PO DAILY simvastatin 10 mg tablet 10 mg PO DAILY carvedilol 3.125 mg tablet 3.125 mg PO BID levothyroxine 100 mcg tablet 100 mcg PO DAILY potassium chloride 20 mEq tablet,ER particles/crystals 20 meq PO DAILY ferrous sulfate [FeroSul] 325 mg (65 mg iron) tablet 325 mg PO DAILY zolpidem 10 mg tablet 10 mg PO HS PRN (Reason: Sleep) metformin 500 mg tablet extended release 24 hr 500 mg PO BID Eliquis 5 mg tablet 5 mg PO DAILY Follow-up/Referrals: Kristen,MD Fernando [Primary Care Provider] - Time of Disposition: 17:15
== END 2025-01-05 17:25 | disposition home or self-care (01) ==
PROVIDERS: Emergency Provider Nurse Practitioner Family; PCP Hospitalist
DX: S00.03XA Contusion of scalp, initial encounter (principal); V48.4XXA Person boarding or alighting a car injured in noncollision transport accident, initial encounter; Z79.01 Long term (current) use of anticoagulants; I48.91 Unspecified atrial fibrillation; I11.0 Hypertensive heart disease with heart failure; I50.9 Heart failure, unspecified; Z95.0 Presence of cardiac pacemaker; E11.9 Type 2 diabetes mellitus without complications; Z79.84 Long term (current) use of oral hypoglycemic drugs; Z96.653 Presence of artificial knee joint, bilateral
CPT/HCPCS: 99212; G0463